=== PATIENT | female | born 1945 | race Caucasian/White ===

== ENCOUNTER 2025-07-13 09:24 | Outpatient (CLI) | payer MEDICARE, MEDICAID, OTHER ==
[~2025-07-13 09:24] MED LIST: ALEN70TA80 PO; ATOR40TA72 PO; CARV25TA PO; CARV25TA2 PO; CINA60TA PO; FURO80TA3 PO; HYDR25TA90 PO; IODIXANOL 320 MG/ML INFUS..BTL 100ML IV ONE; ISOS5TAB3 PO; LACT1CAP26 PO; LOSA100T58 PO; NIFE90TA70 PO; [UNRECOGNIZED DRUG - OTHER]
[2025-07-13 10:06] LABS: MEAN PLATELET VOLUME 6.8 FL (7.4-10.4); RED CELL DISTRIBUTION WIDTH 14.7 % (11.5-14.5)
[2025-07-13 10:15] LABS: APTT 32 SECONDS (22-32); INR 1.2 INR
[2025-07-13 10:23] LABS: CREATININE 4.85 MG/DL (0.40-0.90); TOTAL CARBON DIOXIDE 29.0 MMOL/L (24-32); eGFR 9 ML/MIN
--- NOTE | 2025-07-13 10:49 | RADIOLOGY REPORT ---
EXAM: DI CHEST,TWO VIEWS CLINICAL HISTORY: AV STENOSIS,SOB,CAROTID STENOSIS COMPARISON: CT CT CHEST on DOS: 03/23/25, DI CHEST,SINGLE VIEW on DOS: 03/22/25, XR CHEST 1 VIEW PORTABLE on DOS: 03/22/25 TECHNIQUE: Frontal and lateral view of the chest was obtained FINDINGS: Lines and Tubes: None Lungs: Hyperinflation of the lungs suggestive of chronic obstructive pulmonary disease. Small right and trace left pleural effusion. Cardiomediastinal contours:Cardiomegaly. Atherosclerotic vascular calcifications of the thoracic aorta are noted. Bones: No acute osseous abnormality. IMPRESSION: Cardiomegaly. Hyperinflation of the lungs suggestive of chronic obstructive pulmonary disease. Small right and trace left pleural effusion.
[2025-07-13 10:56] LABS: PRO BRAIN NATRIURETIC PEPTIDE > 30000 PG/ML (0-450)
--- NOTE | 2025-07-13 13:13 | VASCULAR REPORT ---
Carotid Duplex Date: 07/13/2025 10:14 AM Clinical History: pre op tavr Comparison: None Technique: Duplex Doppler evaluation of the extracranial carotid and vertebral arteries including color Doppler and spectral/pulsed waveform analysis was performed. Indications Preop for TAVR. Doppler Spectral Velocity Analysis Right Left pCCA 56/12 cm/s pCCA 68/11 cm/s dCCA 49/9 cm/s dCCA 50/7 cm/s ECA 45/ cm/s ECA 56/ cm/s pICA 35/10 cm/s pICA 39/11 cm/s Sidney 81/21 cm/s Sidney 59/18 cm/s dICA 89/18 cm/s dICA 77/17 cm/s Vert 46/11 cm/s Vert. 40/9 cm/s Subcl. 62/ cm/s Subcl. 152/ cm/s ICA/CCA 1.82 ICA/CCA 1.54 Real-Time B-Mode Imaging Area Findings Right Left CCA Plaque Composition Intimal thickening Intimal thickening BIF Plaque Composition Heterogeneous with calcification Heterogeneous with calcification Plaque Description Irregular Irregular Plaque Area Focal Focal Vertebral Antegrade Antegrade Subclavian Multiphasic Multiphasic CONCLUSION No sonographic evidence of stenosis or occlusion in bilateral carotid arteries. Some heterogenous calcified plaque noted in bilateral bifurcations. Bilateral common carotid arteries showed less than 50 percent stenosis. Bilateral external carotid arteries showed less than 50 percent stenosis. Bilateral internal carotid arteries showed less than 50 percent stenosis. Antegrade flow noted in bilateral vertebral arteries. Multiphasic flow noted in bilateral subclavian arteries.
--- NOTE | 2025-07-15 19:43 | RADIOLOGY REPORT ---
CT CTA TAVR INDICATION: Stenosis TECHNIQUE: Gated CT angiography of the heart was performed along with CT angiography of the lower neck, chest, abdomen, and pelvis. MIP, MPR, and 3-D images were obtained. Measurements were performed on the [employer] workstation. All CT scans at this facility use dose modulation, iterative reconstruction, and/or weight based dosing when appropriate to reduce radiation dose to as low as reasonably achievable. COMPARISON: CT CT CHEST on DOS: 03/23/25 FINDINGS: ANNULAR PLANE DISTANCE: 28 x 21.7 mm AREA: 4.54 cm2 AVERAGE DIAMETER: 18.35 mm PERIMETER: 77.2 mm LEFT CORONARY ARTERY HEIGHT ABOVE ANNULAR PLANE: 15 mm RIGHT CORONARY ARTERY HEIGHT ABOVE ANNULAR PLANE: 10.8 mm LEFT CORONARY SINUS DIAMETER: 32.5 mm RIGHT CORONARY SINUS DIAMETER: 28.3 mm NONCORONARY CORONARY SINUS DIAMETER: 29.1 mm SINOTUBULAR JUNCTION DIAMETER: 26.1 mm RIGHT COMMON ILIAC ARTERY MINIMAL DIMENSIONS: 7.99 mm RIGHT EXTERNAL ILIAC ARTERY MINIMAL DIMENSIONS: 8.63 mm RIGHT COMMON FEMORAL ARTERY MINIMAL DIMENSIONS: 7.23 mm LEFT COMMON ILIAC ARTERY MINIMAL DIMENSIONS: 8.3 mm LEFT EXTERNAL ILIAC ARTERY MINIMAL DIMENSIONS: 7.9 mm LEFT COMMON FEMORAL ARTERY MINIMAL DIMENSIONS: 7.2 mm [LOWER NECK]: Unremarkable [LYMPH NODES/MEDIASTINUM]: Lower paratracheal lymph node prominence measuring 1.4 cm [CARDIOVASCULAR]: [id number]-[id number] cardiomegaly severe dilation of the left atrium which may be seen in the setting of atrial fibrillation short common trunk of the left pulmonary veins question concentric left ventricular hypertrophy No pericardial effusion. Coronary artery calcifications. [LUNG PARENCHYMA/PLEURAL SPACE]: 23 small to medium right-sided pleural effusion. Inconspicuous pulmonary alveolar edema and interstitial edema atelectasis/partial collapse of the medial segment, right middle lobe [CHEST WALL]: Unremarkable. [LIVER]: Areas of enhancement of the periphery of hepatic segment 6 and 7 which may be related to arterial portal shunting with evidence of possible fistula in the right inferior hepatic tip and subsequent dilation of the vessel up to 2.8 cm [SPLEEN]: Unremarkable. [PANCREAS]: Prominence of the main pancreatic duct of the level of the pancreatic body measuring up to 4 mm [GALLBLADDER AND BILIARY TREE]: No cholelithiasis. No biliary dilatation. 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 No nephroureterolithiasis. No hydronephrosis [BLADDER]: Decompressed limiting evaluation [PELVIC ORGANS]: Unremarkable. [BOWEL/MESENTERY]: Slight proximal gastric wall prominence No CT evidence of bowel obstruction. [ASCITES]: Absent [LYMPHADENOPATHY]: No pathologically enlarged lymph nodes by CT size criteria [VASCULATURE]: Vascular calcifications. [ABDOMINAL WALL]: Mild diffuse body wall edema/ anasarca [MUSCULOSKELETAL]: No acute fracture or aggressive focal osseous lesion. Multifocal degenerative change of the visualized spine. Prior healed posterior right-sided rib fractures. Multilevel endplate degenerative change. Mild superior endplate height loss of T9 with 10 percent superior endplate height loss. IMPRESSION: 1. CT TAVR measurements as detailed above. 2. Pulmonary alveolar and interstitial edema. 3. At least moderate cardiomegaly with prominent dilation of the left atrium seen in the setting of atrial fibrillation with short left pulmonary vein common trunk. 4. Suspicious for concentric left ventricular hypertrophy. 5. Coronary artery calcifications. 6. Small to medium right-sided pleural effusion. 7. 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
== END 2025-07-13 23:59 | disposition home or self-care (01) ==
LOC: RAD 09:24
PROVIDERS: ATTEND Internal Medicine Cardiovascular Disease
DX: I65.23 Occlusion and stenosis of bilateral carotid arteries (principal); J90 Pleural effusion, not elsewhere classified; I35.0 Nonrheumatic aortic (valve) stenosis; R06.02 Shortness of breath; J98.11 Atelectasis; I51.7 Cardiomegaly; I70.0 Atherosclerosis of aorta; M47.814 Spondylosis without myelopathy or radiculopathy, thoracic region
CPT/HCPCS: 36415; 71046; 71275; 74174; 75572; 80053; 83880; 85025; 85610; 85730; 93880; Q0163; Q9967

== ENCOUNTER 2025-07-15 08:25 | Outpatient (CLI) | payer MEDICARE, MEDICAID ==
[~2025-07-15] VITALS: Ht 157.5 cm; Wt 39.1 kg
[~2025-07-15 08:25] MED LIST changes: -IODIXANOL 320 MG/ML INFUS..BTL 100ML IV ONE
[2025-07-15 09:10] VITALS: BP 107/53; PULSE 63; RESP 12; TEMP 97.1; O2SAT 100
--- NOTE | 2025-07-15 12:40 | CONSULTATION REPORT ---
History of Present Illness Providers to CC CC: FRANK CUNHA DO ~ Refering MD: Dr. Cunha History of Present Illness A Very pleasant 79yo woman with Hypertension, Hyperlipidemia, End-stage renal disease(on HD T/R/S), Chronic Respiratory Failure(On O2), Severe Symptomatic A ortic Stenosis here to be evaluated in the TAVR clinic. She is accompanied by her [id number]. States she had two hospitalizations for shortness of breath this year. In December, states she was in the hospital for 4-5 days and cannot recall why. Was then again hospitalized February of 2025 for shortness of breath, found to have worsening of her aortic stenosis as well as pneumonia. Since, has steadily declined. Now gets short of breath just making her bead. Has been on oxygen since February hospitalization. Additionally, reports her BP does drop at times with dialysis. She denies any chest pain, syncope, dizziness/lightheadedness, bleeding, LE edema. Allergies: Coded Allergies: iodine (Verified Allergy, Unknown, 09/29/23) Active prescriptions Losartan 200mg QD Coreg 12.5mg BID Imdur BID Lasix 80mg BID Atorva 80mg QDTrazadone Alendronate Auryxia Cinacalcet Home Medications Home Medications Active Culturelle (Lactobacillus Rhamnosus) 10 Billion Cell Capsule 1 Cap PO BID 30 Days Reported Isosorbide Dinitrate 5 Mg Tablet 1 Tab PO Q12H 30 Days Atorvastatin Calcium 40 Mg Tablet 2 Tab PO DAILY Furosemide 80 Mg Tablet 1 Tab PO DAILY Nifedipine ER (Nifedipine) 90 Mg Tablet.er 1 Tab PO DAILY Losartan Potassium 100 Mg Tablet 1 Tab PO DAILY [Anryxia] Sensipar (Cinacalcet) 60 Mg Tablet 2 Tab PO DAILY Alendronate Sodium 70 Mg Tablet 1 Tab PO Q7D Coreg (Carvedilol) 25 Mg Tablet 1 Tab PO BID Apresoline* (Hydralazine HCl) 25 Mg Tablet 1 Tab PO TID Carvedilol 25 Mg Tablet 0.5 Tab PO BID Past Medical History Medical History Comment 1. Severe, Symptomatic Aortic Stenosis 2. Hypertensive heart disease 3. Hyperlipidemia 4. ESRD, on HD T/R/Sat 5. Chronic Respiratory failure Past Surgical History Surgical History Comment Prior LUE AV fistula. Hysterectomy. Otherwise denies any heart/lung surgeries Past Family History Family History: FH: kidney failure MOTHER Past Social History Social History Comment Denies tobacco or alcohol abuse Physical Exam Last Vital Signs Recorded: Temperature: 97.1, Source: Temporal, Heart Rate: 63, Respiratory Rate: 12, BP: 107/53, Pulse Oximetry: 100, Weight: 39.100 General Appearance: alert, no apparent distress, other (++In wheelchair, On O2) Respiratory: lungs clear Cardiovascular: regular rate, rhythm, systolic murmur (IV/ RUSB/LUSB. ) Peripheral Pulses: 2+ radial (R), 2+ radial (L) Gastrointestinal: bowels sounds present Extremities: no edema, other (++ LUE AVF) Neurologic: oriented x4 Psychiatric: normal mood/affect Review of Systems ROS ROS Comments: A 14-point review of systems is positive as above. The rest of the review of systems has been done and found to be unrevealing. Results Results/Orders Results/Orders Hg 11.0 HCt 32.1, Cr 4.85(On HD) Echocardiogram: LVEF 55-60%, PV 4.0 m/s, MG 38 mmHg, VITA 0.6cm2. Coronary Angiogram: No significant obstructive CAD (2022) EKG: Normal Sinus rhythm, QRS 97ms CT TAVR: Some PAD involving the left common iliac artery. Sinuses are large enough, coronaries are high enough. Assessment/Plan Problems/Diagnosis: (1) Aortic stenosis Assessment & Plan: A Very pleasant 79yo woman with Hypertension, Hyperlipidemia, End-stage renal disease(on HD T/R/S), Chronic Respiratory Failure(On O2), Severe Symptomatic Aortic Stenosis here to be evaluated in the TAVR clinic. She is accompanied by her [id number]. She has severe, symptomatic aortic stenosis with NYHA Class III symptoms of dyspnea on exertion, fatigue. Patient appears to be a good candidate for a transfemoral transcatheter aortic valve replacement. She does have chronic respiratory failure, on O2, however, appears to be the last 4-5 months since she had a pneumonia. Prior CT chest did not reveal any malignancy. --Will plan for a 23mm valve via right femoral approach, to be scheduled soon. (stenosis/calcification of the left common iliac artery) Dr. Cunha, We thank you for allowing us the opportunity to help with the patient. They will see you back in the office shortly. DEVAN LANDIN MD Jul 15, 2025 12:40
== END 2025-07-15 23:59 | disposition home or self-care (01) ==
LOC: TAVR 08:25
PROVIDERS: ATTEND Internal Medicine Cardiovascular Disease
DX: I35.0 Nonrheumatic aortic (valve) stenosis (principal); R06.02 Shortness of breath; I65.29 Occlusion and stenosis of unspecified carotid artery
CPT/HCPCS: J1200

== ENCOUNTER 2025-08-11 09:06 | Inpatient (IN) | payer MEDICARE, MEDICAID ==
[2025-08-05] MEDS: albuterol 2.5 MG/3 ML nebule NEB ONE (13:50)
[2025-08-05 13:51] VITALS: PULSE 69; RESP 18; O2SAT 90
[2025-08-05 13:52] VITALS: PULSE 65; RESP 16
[2025-08-05 14:36] LABS: MEAN PLATELET VOLUME 7.1 FL (7.4-10.4); PRE OP HEMATOCRIT 28.3 % (35.0-45.0); PRE OP PLATELET COUNT 160 X10'3 (140-440); PRE OP WHITE BLOOD COUNT 6.0 10'3 (4.8-10.8); RED CELL DISTRIBUTION WIDTH 17.0 % (11.5-14.5)
[2025-08-05 14:43] LABS: PRE OP INR 1.2 INR; PRE OP PARTIAL THROMB. TIME 29.0 SECONDS (22-32); PRE OP PROTIME 12.4 SECONDS (9.0-12.0)
[2025-08-05 14:44] LABS: PRE OP HEMOGLOBIN 9.7 g/dL (12.0-16.0)
--- NOTE | 2025-08-05 14:49 | ELECTROCARDIOGRAPH REPORT ---
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 Mathew Grover Measurements Intervals [place] Rate: 65 P: 0 [place]: 155 QRS: -39 QRSD: 93 T: 78 QT: 469 QTc: 488 Interpretive Statements Sinus rhythm LVH with secondary repolarization abnormality Electronically Signed On 08-08-2025 7:11:[address] Mathew Grover Please click the below link to view image of tracing.
[2025-08-05 14:55] LABS: CREATININE 4.14 MG/DL (0.40-0.90); PRE OP ALT 35 U/L (30-65); PRE OP ANION GAP 11 (8-16); PRE OP AST 22 U/L (10-37); PRE OP BILIRUB, TOTAL 0.4 MG/DL (0.0-1.0); PRE OP GLUCOSE 92 MG/DL (70-104); PRE OP POTASSIUM 4.0 MMOL/L (3.4-5.1); PRE OP SODIUM 141 MMOL/L (135-145); PRO BRAIN NATRIURETIC PEPTIDE 22815 PG/ML (0-450); TOTAL CARBON DIOXIDE 30.6 MMOL/L (24-32); eCRCL 7 ML/MIN; eGFR 10 ML/MIN
--- NOTE | 2025-08-05 16:33 | PROCEDURE NOTE - Respiratory ---
Procedure Note-Respiratory Providers to Copies To 1: TAZ HOLMAN MD Procedure Name: This is a spirometry study dated August 05, 2025. The spirometry study was performed both before and after inhaled bronchodilator. There was also a room air blood gas obtained on this patient on the same date. Spirometry measurements: There is significant reduction in both the forced vital capacity and the FEV1. The FEV1 ratio is significantly elevated. The flow rate measurements are normal. After inhaled bronchodilator was administered, there is significant improvement in the FEV1 and some of the flow rate measurements. Conclusion: This study is abnormal. The predominant abnormality is that of a restrictive ventilatory defect. There is also evidence for mild obstructive ventilatory defect as well. The patient seems to show slight improvement with inhaled bronchodilator. We have no previous studies for comparison. A blood gas was drawn from this patient while the patient was breathing 4 L nasal cannula oxygen. The blood pH is mildly alkalotic at 7.5. The pCO2 is borderline reduced. This represents a mild respiratory alkalosis. The PO2 level is measuring at 77 mmHg which documents a significantly widened AA gradient. LINDA BARNES MD Aug 05, 2025 16:33
[2025-08-08 07:27] LABS: ABG BASE EXCESS 4.8 mmol/L (-2.0-3.0); ABG HCO3 27.8 mmol/L (21.0-28.0); ABG OXYGEN SATURATION 95.3 % (94.0-98.0); ABG PCO2 (T) 35.0 mmHg (32.0-45.0); ABG PH (T) 7.518 (7.350-7.450); ABG PO2 (T) 77.9 mmHg (83.0-108.0); FCOHb 0.3 % (0.5-1.5); FHHb 4.7 % (0.0-5.0); FIO2 36.0 mmHg/%; FLOW 4 L/min; FMetHb 0.3 % (0.0-1.5); FO2Hb 94.7 % (94.0-98.0); MODE NASAL CANNULA; PATIENT TEMPERATURE 37.0; TOTAL HEMOGLOBIN 10.2 G/dl (12.0-16.0)
[2025-08-10] MEDS: DOCUMENT DATE & TIME OF BETA-BLOCKER PO ONE (20:00)
[2025-08-11] VITALS (28 sets, daily range): BP systolic 134–182; BP diastolic 42–123; PULSE 64–77; RESP 9–23; TEMP 97.4–98.1; O2SAT 84–100
[~2025-08-11] VITALS: Ht 157.5 cm; Wt 41.5 kg
[2025-08-11] MEDS: albuterol 2.5 MG/3 ML nebule NEB ONE (05:30)
[2025-08-11] MEDS: ceFAZolin 2gm/dext,iso 50mL 50 ML IV ONE (05:30)
[~2025-08-11 09:06] MED LIST changes: +AURYXIA PO; +CARV-50 PO; -CARV25TA PO; -CARV25TA2 PO; -LACT1CAP26 PO; +TRAZ-251 PO; -[UNRECOGNIZED DRUG - OTHER]
[2025-08-11] MEDS: vancomycin/NS 1 GM ADD-VANTAGE 250 ML IV ONE (10:48)
[2025-08-11] MEDS: normal saline 1000ml 1,000 ML IV SCH ×2 (10:49→17:50)
[2025-08-11] MEDS ORDERED: ondansetron/PF 4mg/2ml inj IV PRN ×2 (10:50→14:25)
[2025-08-11] MEDS ORDERED: morphine 4 MG/ML inj SYRINge IV PRN (10:50)
[2025-08-11] MEDS ORDERED: fentaNYL/PF 50MCG/1 ML 2ML syringe ONE (11:43)
[2025-08-11] MEDS ORDERED: midazolam 1 mg/ML 2ml injection ONE (11:43)
[2025-08-11] MEDS ORDERED: heparin 1,000 UNITS/NS 500ml 1,500 ML ONE (12:09)
[2025-08-11] MEDS ORDERED: non-formulary drug (Alendronate Sodium 1 TAB) PO SCH (12:25)
[2025-08-11] MEDS ORDERED: propofol inj 20 ML IV ONE (12:54)
[2025-08-11] MEDS ORDERED: heparin 1,000unit/ml 10ml vial 10 ML ONE ×2 (12:54→13:00)
[2025-08-11] MEDS ORDERED: desflurane 240ml liquid inh. IH ONE (13:07)
[2025-08-11] MEDS ORDERED: protamine sulfate 10mg/ml inj. ONE (13:07)
[2025-08-11] MEDS ORDERED: potassium Cl 40MEQ/1/2NS 520ml 520 ML IV PRN (14:25)
[2025-08-11] MEDS ORDERED: magnesium sulf-water 2g/50mL 50 ML IV PRN (14:25)
[2025-08-11] MEDS ORDERED: docusate sod 100mg capsule PO PRN (14:25)
[2025-08-11] MEDS ORDERED: potassium Cl 20mEq/100mL bag 100 ML IV PRN (14:25)
[2025-08-11] MEDS ORDERED: pantoprazole 40mg Tablet.DR PO PRN (14:25)
[2025-08-11] MEDS ORDERED: potassium CL 10mEq/100ml bag 100 ML IV PRN (14:25)
[2025-08-11] MEDS ORDERED: potassium Cl 20 mEq SR tablet PO PRN (14:25)
[2025-08-11] MEDS ORDERED: potassium Cl 40MEQ/270ML bag 250 ML IV PRN (14:25)
[2025-08-11] MEDS ORDERED: magnesium sulf-water 4G/100mL 100 ML IV PRN (14:25)
--- NOTE | 2025-08-11 14:35 | OPERATIVE REPORT ---
Operative Report Providers to CC CC: Oswaldo Bruno MD ~ Date of Procedure: Aug 11, 2025 Pre-Operative Diagnosis: Severe Aortic Stenosis Post-Operative Diagnosis SAME as PRE-Op Procedure Performed 1. Ultrasound-guided access, bilateral femoral vessels. 2. Bilateral femoral angiography. 3. Ascending aortography 4. Temporary transvenous pacer to the RV apex. 5. Placement of a 23 +1 mm Rider S3 Resilia valve. Surgeon: Devan Grover MD Dry Ice Machine Operator MD Dr. Nir Steen MD Anesthesiologist: Sean Gamble Type of Anesthesia: General Findings: Severe Aortic Stenosis Complications None Prosthetics\Implants used: Rider 23+1mm S3 Resilia Estimated Blood Loss: Minimal Specimen Removed: None Description of Procedure: The patient was brought to the cathead worker in a fasting state. They underwent general anesthesia. Ultrasound was used to guide access to the bilateral femoral vessels, 7-Guinean sheath, left femoral artery, 6-Guinean sheath, right femoral artery and left femoral vein. Bilateral femoral angiograms were obtained. Heparin was given to maintain an ACT over 250 seconds. Two crisscross Percloses were placed on the right. We upsized to an 8-Guinean sheath. Two pigtail catheters placed in the ascending aorta. Ascending aortography done to determine the angle of deployment. Temporary transvenous pacer to the RV apex and confirmed capture. We upsized an 8-Guinean sheath to a 14-Guinean Rider eSheath on the right. We crossed the aortic valve using a straight stiff exchange length Terumo wire supported by a 6-Guinean AL1 catheter. LV AO pressures were recorded. A [employer] extra support wire was placed in the left ventricle. A 23mm Rider S3 Resilia valve was brought to position and under rapid right ventricular pacing was deployed. Post-procedure, there was 2+ AI and no residual . Given such, the valve balloon was re-prepped at +1 and the valve post-dilated. Repeat evaluated revealed 1+ AI and no signficant . Guidewires and balloons were removed at this time. The temporary pacer was removed. The 14-Guinean Rider eSheath was removed and two crisscross Percloses tied with adequate hemostasis. The arterial sheath on the left was removed and a single Perclose tied. The venous sheath on the left was removed and a single Perclose used for hemos tasis. Protamine was given to reverse the effects of heparin. The patient was stable post-procedure. Good pulses in the legs and no evidence of bleeding, transferred to the PACU in stable condition. HEMODYNAMICS: Pre: LV: 162/8 mmHg LVEDP: 19mmHg Ao: 132/53, MAP 81mmHg Post: LV: 150/13 mmHg LVEDP: 25 mmHg Ao: 147/49, MAP 86mmHg RESULTS: 1. Successful placement of a 23(+1) mm Rider S3 Resilia valve, right transfemoral approach, two perclose devices. ASA 81mg QD 2. Acute on chronic diastolic heart failure, LVEDP 19mmHg 3. Hypertension: Resume if blood pressure remains stable 4. ESRD, on HD T/R/Sat Patient will be watched in the recovery area until stable, then transferred to telemetry at that time. DEVAN GROVER MD Aug 11, 2025 14:35
[2025-08-11] MEDS ORDERED: LIDOcaine 1% W/epiNEPHrine 1:100,000 20ml vial ONE (14:42)
--- NOTE | 2025-08-11 15:02 | ELECTROCARDIOGRAPH REPORT ---
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 Dylan España Measurements Intervals [place] Rate: 63 P: 71 [place]: 154 QRS: -54 QRSD: 158 T: 114 QT: 551 QTc: 565 Interpretive Statements Sinus rhythm Ventricular premature complex Left bundle branch block Electronically Signed On 08-12-2025 8:52:[address] Dylan España Please click the below link to view image of tracing.
[2025-08-11] MEDS: phenylephrine inj 50 MG in normal saline 250ml IV solN IV SCH (15:15)
[2025-08-11] MEDS: ringers solution, lacted 1,000 ML IV SCH (15:15)
[2025-08-11] MEDS: nitroPRUSSIDE (NIPRIDE) (200MCG/ML) 100ML Drip IV SCH (15:15)
[2025-08-11] MEDS: sod chloride 0.9% 10ml flush syringe IV SCH (16:00)
[2025-08-11] MEDS: labetalol 20mg/4ml (5mg/ml) syringe IV PRN (16:00)
[2025-08-11] MEDS: ceFAZolin 1GM/D5W- ADD-VANTAGE 50 ML IV SCH (16:00)
[2025-08-11] MEDS: hydrALAZINE 20mg/ml inj. IV PRN (16:43)
--- NOTE | 2025-08-11 16:52 | CARDIOLOGY REPORT ---
APPROVED REPORT EXAM: Focused, limited intraprocedural transthoracic 2D, spectral and color flow Doppler echocardiogram during TAVR deployment. 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 / Surgeon: Erica CHAND MD / Device rep: Parker Hagan ELS Previous echo: 03/22/25 [facility] RL EF: 55-60%; VITA 0.85; PKV: 4.49; GRAD: 80 / 42; LVOT: 2.02; VHD: TR MR; modMR-MJ; modTR; RVSP 96mmHG LEFT VENTRICLE Normal LV size and function. Mild concentric hypertrophy. LVEF is 70%. RIGHT VENTRICLE RV is mildly increased in size with good function. RVSP 60mmHG. (HD YESTERDAY) ATRIA Left atrium is moderately dilated. Right atrium is severely dilated. AORTIC VALVE ? Trileaflet AV appears heavily calcified with significant stenosis demonstrated by reduced excursion and increased transvalvular and ascending aorta turbulance. VITA: 0.7 cmsq; Pkv: 4.47 m/sec; Gradients: 90 /51 mmHG. Trace insufficiency. POST DEPLOYMENT (LOOP: 45): 23 mm Rider Dino 3 Ultra Resilia bioprosthetic TAVR appears well seated with normal function. Multiple small PVL's, secondary dilitation performed. Multiple trace paravalvular leaks present at 12, 1, 5, 6 and 7 o'clock in TTE SAX BASE. VITA is measured at 2.58 cmsq. Peak / mean gradients of 20/9 mmHG. Peak velocity is measured at 2.22 m/sec. MITRAL VALVE Moderate MV annular calcification without stenosis. ?Moderate, multijet regurgitation. (HD YESTERDAY) TRICUSPID VALVE TV appears structurally normal with mild regurgitation. (HD YESTERDAY) PERICARDIUM Normal pericardium. No effusion.
[2025-08-11] MEDS: NIFEdipine XL 30mg tablet PO SCH (17:27)
[2025-08-11] MEDS: NIFEdipine XL 30mg tablet PO STA (17:44)
[2025-08-11] MEDS: morphine 4 MG/ML inj SYRINge IV PRN (17:48)
[2025-08-11] MEDS: cinacalcet 30mg tablet PO SCH (20:30)
[2025-08-11] MEDS: vancomycin/NS 1 GM ADD-VANTAGE 250 ML IV SCH (22:05)
[2025-08-11] MEDS: isosorbide dinitrate 5mg tablet PO SCH (22:05)
[2025-08-12] VITALS (28 sets, daily range): BP systolic 95–185; BP diastolic 50–106; PULSE 64–78; RESP 18–30; TEMP 97–98; O2SAT 80–99
[2025-08-12] MEDS: ALPRAZolam 0.25mg tablet PO PRN (01:18)
--- NOTE | 2025-08-12 06:30 | ELECTROCARDIOGRAPH REPORT ---
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 AMADOU Carranza Measurements Intervals [place] Rate: 73 P: 36 [place]: 156 QRS: -56 QRSD: 149 T: 102 QT: 482 QTc: 532 Interpretive Statements Sinus rhythm Left bundle branch block Electronically Signed On 08-12-2025 18:04:[address] AMADOU Carranza Please click the below link to view image of tracing.
[2025-08-12 06:59] LABS: MEAN PLATELET VOLUME 7.1 FL (7.4-10.4); RED CELL DISTRIBUTION WIDTH 18.2 % (11.5-14.5)
--- NOTE | 2025-08-12 07:03 | RADIOLOGY REPORT ---
CHEST RADIOGRAPH Indication: s/p TAVR Technique: Single frontal view of the chest was obtained Comparison: DI CHEST,TWO VIEWS on DOS: 07/13/25 FINDINGS: Lines and Tubes: None Lungs: Diffuse bilateral airspace opacities. Pleura: Small right and large left pleural effusion. No pneumothorax. Cardiomediastinal contours: Cardiomegaly noted. TAVR noted. Bones: No acute osseous abnormality. IMPRESSION: 1. Cardiomegaly with CHF. 2. Small right and large left pleural effusion.
[2025-08-12 07:35] LABS: CREATININE 4.96 MG/DL (0.40-0.90); PRO BRAIN NATRIURETIC PEPTIDE 27639 PG/ML (0-450); TOTAL CARBON DIOXIDE 29.4 MMOL/L (24-32); eCRCL 6 ML/MIN; eGFR 8 ML/MIN
[2025-08-12] MEDS: heparin 1,000 units/ml 10ml inj HE ONE ×2 (08:45→08:46)
[2025-08-12] MEDS: EPOETIN ALFA-EPBX 20,000 UNIT/ML 1 ML MDV IV ONE (09:12)
[2025-08-12] MEDS: albumin (human) 25% 100ml IV 100 ML IV PRN (10:15)
[2025-08-12] MEDS: HYDROcodone/acetaminophen 5mg/325mg tablet PO PRN (11:43)
[2025-08-12] MEDS ORDERED: ASPI81TA53 PO (13:39)
--- NOTE | 2025-08-12 13:59 | RADIOLOGY REPORT ---
EXAM: DI CHEST,SINGLE VIEW Indication: follow up with the pleural effusion s/p dialysis Technique: Single frontal view of the chest was obtained Comparison: DI CHEST,SINGLE VIEW on DOS: 08/12/25, DI CHEST,TWO VIEWS on DOS: 07/13/25, CT CT CHEST on DOS: 03/23/25, DI CHEST,SINGLE VIEW on DOS: 03/22/25, XR CHEST 1 VIEW PORTABLE on DOS: 03/22/25 FINDINGS: Lines and Tubes: None Lungs: Multifocal airspace opacities. Moderate left and small right pleural effusion. No pneumothorax. Cardiomediastinal contours: Cardiomegaly. Bones: No acute osseous cardiomegaly.. IMPRESSION: Multifocal airspace opacities. Moderate left and small right pleural effusion.
--- NOTE | 2025-08-12 14:50 | DISCHARGE SUMMARY ---
Discharge Summary Providers to CC ~ Discharge Summary Admission Diagnosis: Severe Aortic Stenosis Hospital Course DATE OF ADMISSION: 08/11/25 DATE OF DISCHARGE: 08/12/25 Discharge Diagnosis\Comment: Severe aortic stenosis status post TAVR Operations\Procedures: 1. Ultrasound-guided access, bilateral femoral vessels. 2. Bilateral femoral angiography. 3. Ascending aortography 4. Temporary transvenous pacer to the RV apex. 5. Placement of a 23 +1 mm Rider S3 Resilia valve. Consultants: No consultants Complications: No complications Condition on DC: Stable New Medications: Aspirin (Children's Aspirin) 81 Mg Tab.chew 81 MG PO Q24H@0830 for 30 Days, #30 TAB.CHEW Continued Medications: Alendronate Sodium (Alendronate Sodium) 70 Mg Tablet 1 TAB PO Q7D Atorvastatin Calcium (Atorvastatin Calcium) 40 Mg Tablet 2 TAB PO DAILY Carvedilol (Carvedilol) 12.5 Mg Tablet 1 TAB PO Q12H Cinacalcet HCl (Sensipar) 60 Mg Tablet 2 TAB PO HS, TAB Furosemide (Furosemide) 80 Mg Tablet 1 TAB PO BID Hydralazine Hcl* (Apresoline*) 25 Mg Tablet 1 TAB PO DAILY PRN for high blood pressure ONLY IF NEEDED Isosorbide Dinitrate (Isosorbide Dinitrate) 5 Mg Tablet 1 TAB PO Q12H for 30 Days, #60 TAB 0 Refills Losartan Potassium (Losartan Potassium) 100 Mg Tablet 2 TAB PO DAILY Nifedipine (Nifedipine ER) 90 Mg Tablet.er 2 TAB PO HS Trazodone HCl (Trazodone HCl) 50 Mg Tablet 1 TAB PO HS PRN for sleep Discharge Summary: Patient with severe aortic stenosis presented for planned TAVR. Underwent placement of a 23 (+1) mm Rider S3 resilient valve via the right transfemoral approach. She was monitored overnight in the telemetry unit. Has remained hemodynamically stable. She had some increased shortness for breath. She did receive a additional dialysis. She usually has dialysis Friday and was additionally dialysis yesterday. 3.7 L taken off today. She reports feeling better. Shortness for breath is at baseline. She was initially up to 10 L nasal cannula now back down to her home 4-5 L via nasal cannula. Has plans to have dialysis again tomorrow. Has been up and ambulatory to the [facility] and feels well overall. No chest pain or pressure. Shortness for breath at baseline. No dizziness, lightheadedness or syncope. Postoperative testing was reviewed by Dr. Hiram Grover and Dr. Jordan Field. She does have a moderate left pleural effusion. NT proBNP elevated. Postoperative testing prior to discharge: General: Awake, alert, oriented. No apparent distress Respiratory: Lungs are clear and diminished to auscultation bilaterally. No respiratory distress. Chest: Normal shape and size. No accessory muscle use. Cardiovascular: Regular rate and rhythm. S1-S2. No murmur, gallop, rub. Gastrointestinal: Abdomen is soft. Nontender to palpation. Bowel sounds present. Extremities: No lower extremity edema, cyanosis or clubbing. Bilateral femoral cath sites with dressings clean dry and intact. No ecchymosis or swelling. No hematoma. Neurologic: Alert and oriented x4. Nonfocal Psychiatric: Normal mood and affect. Skin: Normal color. Warm and dry. Laboratory Tests Test 08/11/25 19:58 08/12/25 06:24 White Blood Count 10.8 X10'3 (4.5-11.0) Red Blood Count 2.92 X10'6 (4.20-5.60) Hemoglobin 9.9 g/dl (12.0-16.0) Hematocrit 28.5 % (35.0-45.0) Mean Corpuscular Volume 97.6 FL (78-98) Mean Corpuscular Hemoglobin 34.0 PG (27.0-31.0) Mean Corpuscular Hemoglobin Concent 34.8 g/dL (33.0-36.5) Red Cell Distribution Width 18.2 % (11.5-14.5) Platelet Count 159 X10'3 (140-440) Mean Platelet Volume 7.1 FL (7.4-10.4) Neutrophils (%) (Auto) 86.2 % (42-75) Lymphocytes (%) (Auto) 6.8 % (21-51) Monocytes (%) (Auto) 5.2 % (2-12) Eosinophils (%) (Auto) 1.6 % (0-6) Basophils (%) (Auto) 0.2 % (0-1) Neutrophils # (Auto) 9.3 X10'3 (1.8-7.7) Lymphocytes # (Auto) 0.7 X10'3 (1.1-4.8) Monocytes # (Auto) 0.6 X10'3 (0-0.9) Eosinophils # (Auto) 0.2 X10'3 (0-0.9) Basophils # (Auto) 0.0 X10'3 (0-0.2) CBC Comment Sodium Level 137 MMOL/L (135-145) Potassium Level 5.0 MMOL/L (3.5-5.1) Chloride Level 98 MMOL/L (99-107) Carbon Dioxide Level 29.4 MMOL/L (24-32) Anion Gap 10 (8-16) Blood Urea Nitrogen 50 MG/DL (7-18) Creatinine 4.96 MG/DL (0.40-0.90) Estimated GFR/1.73 m2 8 ML/MIN BUN/Creatinine Ratio 10.1 (10.0-20.0) Glucose Level 96 MG/DL (70-104) Calcium Level 8.9 MG/DL (8.5-10.1) Magnesium Level 2.3 MG/DL (1.5-2.4) Total Bilirubin 0.5 MG/DL (0.1-1.0) Aspartate Amino Transf (AST/SGOT) 24 U/L (10-37) Alanine Aminotransferase (ALT/SGPT) 14 U/L (12-78) Alkaline Phosphatase 90 IU/L (46-116) Pro-B-Type Natriuretic Peptide 25137 PG/ML (0-450) Total Protein 6.4 G/DL (6.4-8.2) Albumin 3.2 G/DL (3.4-5.0) Globulin 3.2 G/DL (2.7-4.3) Albumin/Globulin Ratio 1.0 (1.1-1.5) Chemistry Comments Case discussed with Dr. Hiram Grover who is in agreement with discharge home. *Problems/Diagnosis: (1) Pleural effusion (2) Acute on chronic diastolic heart failure (3) Hypertension (4) Aortic stenosis (5) End stage renal disease on dialysis Status: Acute Total Time Spent on D/C: > 30 Minutes Counseling Services Smoking & Tobacco Cessation: N/A JOSE ROBERTO GRAFF NP Aug 12, 2025 14:49
--- NOTE | 2025-08-12 15:25 | PROGRESS NOTE ---
Progress Note Cardiology Providers to CC ~ Subjective Subjective Patient unable to discharge today given hypoxia. She is 79% on her home 5 L. x- ray does show moderate pleural effusion on the left. Objective Result Diagram: 08/12/2562308/12/25623 Objective General: Awake, alert, oriented. No apparent distress Respiratory: Lungs are clear and diminished to auscultation bilaterally. No respiratory distress. Chest: Normal shape and size. No accessory muscle use. Cardiovascular: Regular rate and rhythm. S1-S2. No murmur, gallop, rub. Gastrointestinal: Abdomen is soft. Nontender to palpation. Bowel sounds present. Extremities: No lower extremity edema, cyanosis or clubbing. Bilateral femoral cath sites with dressings clean dry and intact. No ecchymosis or swelling. No hematoma. Neurologic: Alert and oriented x4. Nonfocal Psychiatric: Normal mood and affect. Skin: Normal color. Warm and dry. Coagulation Studies Laboratory Tests Test 08/05/25 14:05 08/11/25 13:29 Prothrombin Time 12.4 SECONDS (9.0-12.0) H INR International Normalized Ratio 1.2 INR Activated Partial Thromboplast Time 29 SECONDS (22-32) Activated Clotting Time 216 SEC (101-148) H Problem\Assessment\Plan Problems/Diagnosis: (1) Pleural effusion (2) Acute on chronic diastolic heart failure (3) Hypertension (4) Aortic stenosis (5) End stage renal disease on dialysis Additional Plan Patient presented for planned TAVR. The following is her problem list: Severe aortic stenosis Status post TAVR Postoperative testing reveals TAVR valve is well seated. Acute on chronic respiratory failure Moderate left pleural effusion Requiring more oxygen Plan for dialysis again tomorrow. Possible thoracentesis tomorrow. End-stage renal disease on dialysis --we will plan for dialysis again tomorrow Acute on chronic diastolic heart failure Hypertension Case discussed with Dr. Hiram Grover who is in agreement with this plan. Supervising Physician: JOSE ROBERTO Grimes NP Aug 12, 2025 15:25
[2025-08-12] MEDS: hydrALAZINE 20mg/ml inj. IV PRN (16:42)
--- NOTE | 2025-08-12 16:58 | CONSULTATION REPORT - RESIDENT ---
Consult Providers to CC Resident Creating Document: DEEPA RIVERA RES History of Present Illness Reason for Admit\Complaint: Fluid overload History of Present Illness This is an 79-year-old female with a history of aortic stenosis, hypertension, CHF, ESRD on dialysis(TTS), chronic hypoxemic respiratory failure, on 4-5 L of oxygen at home, had a planned TAVR done by Dr. Grover. She received dialysis on Friday and Friday before the TAVR. Throughout the night and today in the morning she developed increase in the shortness of breadth, was on 15 L high- flow oxygen. Her chest x-ray showed bilateral congestion with bilateral pleural effusion. She received dialysis today, about 3700 mL of fluid was taken out, post dialysis the patient has felt much better, her oxygen requirement decreased to 5 L with nasal cannula. Allergies: Coded Allergies: iodine (Verified Allergy, Unknown, 09/29/23) Home Medications Home Medications Active Children's Aspirin (Aspirin) 81 Mg Tab.chew 81 Mg PO Q24H@0830 30 Days Reported Carvedilol 12.5 Mg Tablet 1 Tab PO Q12H Trazodone HCl 50 Mg Tablet 1 Tab PO HS PRN Isosorbide Dinitrate 5 Mg Tablet 1 Tab PO Q12H 30 Days Atorvastatin Calcium 40 Mg Tablet 2 Tab PO DAILY Furosemide 80 Mg Tablet 1 Tab PO BID Nifedipine ER (Nifedipine) 90 Mg Tablet.er 2 Tab PO HS Losartan Potassium 100 Mg Tablet 2 Tab PO DAILY Sensipar (Cinacalcet) 60 Mg Tablet 2 Tab PO HS Alendronate Sodium 70 Mg Tablet 1 Tab PO Q7D Apresoline* (Hydralazine HCl) 25 Mg Tablet 1 Tab PO DAILY PRN ONLY IF NEEDED Past Medical History Past Medical History ESRD on dialysis Cardiovascular disease HTN Hyperlipidemia Past Surgical History Surgical History Comment Cataract extraction Cardiac catheterization in 2020 Hysterectomy Left wrist ORIF Family History Family History: FH: kidney failure MOTHER Past Social History Social History Comment Denies Smoking, alcohol, illicit use of drugs Exam Vitals: Vital Signs Date Time Temp Pulse Resp B/P (MAP) Pulse Ox O2 Delivery O2 Flow Rate FiO2 08/12/25 16:43 19 08/12/25 16:42 75 08/12/25 15:13 92 High Flow Nasal Cannula 8.0 08/12/25 11:20 98.0 128/57 (80) 08/12/25 02:40 44 General: General: In respiratory pparent distress HEENT: Atraumatic, normocephalic, EOMI, anicteric sclera ; pink conjunctiva Neck: Trachea midline. Supple, full range of motion, no JVD Cardiac: Regular rhythm, regular rate with no murmurs all over the precordium. Respiratory: Decreased breath sounds bilaterally, bilateral crackles heard Gastrointestinal: Abdomen symmetric, non-distended, soft, non-tender, normal bowel sounds x4 quadrant, Musculoskeletal: Bilateral 2+ pitting edema up to knees. Neurological: No focal neurological deficits. Skin: Warm and dry Diagnostic Data Last Recorded Lab Results: 08/12/25 0624 08/12/25 0624 Diagnostic Data: Laboratory Tests Test 08/05/25 14:05 08/11/25 13:29 Prothrombin Time 12.4 SECONDS (9.0-12.0) H INR International Normalized Ratio 1.2 INR Activated Partial Thromboplast Time 29 SECONDS (22-32) Activated Clotting Time 216 SEC (101-148) H Additional Plan Assessment This is an 79-year-old female with a history of CKD stage 5, severe aortic stenosis, chronic hypoxemic respiratory failure on 4-5 L of oxygen had a TAVR done yesterday, she developed sudden increasing shortness of breadth with pulmonary congestion and bilateral pleural effusion. She had dialysis today, about 3700 mL of fluid was taken out. Post dialysis patient feels much better. Plan ESRD on dialysis, Acute fluid overload, pleural effusion The fluid overload could be due to sudden change in the hemodynamics of the patient after TAVR. Chest x-ray showed small right and large left pleural effusions. Her regular dialysis schedule is Friday, , Friday Dialysis port-AV fistula in the left forearm. Dialysis was done, removed about 3700 mL Potassium was about 5.0, 2K bath Hemoglobin 9.9, 40853 units of Retacrit given Plan Patient continues to show fluid overload We will probably need one more round of dialysis tomorrow. Possible thoracocentesis tomorrow History of hyperparathyroidism Continued patient's home medications ionized calcium 60 mg Acute CHF exacerbation Aortic stenosis s/p TAVR Currently on 8 L of oxygen with nasal cannula. ProBNP 2 769 Echocardiogram post TAVR shows ejection fraction of 65-70%, moderately dilated left atrium Continue aspirin, atorvastatin On Lasix 80 b.i.d.. Hypertension Patient's home medication include losartan to 100 mg, nifedipine 90 mg, isosorbide dinitrate 5 mg q.12, carvedilol, hydralazine 25 mg Patient's current blood pressure is on the lower end. Deepa Rivera M.D PGY2 Nephrology Resident. Nephrology attending: the patient is quite short of breath just finished her dialysis and we got out 2.7 liters prioritizing her for dialysis first. She feels somewhat better. still on 8 L NC. will dialyzer her tomorrow again. discussed cardiology VOLUNTEER SERVICES SPECIALIST. care plan reviewed with resident. appreciate the above. Cedric Mcneal MD Sepsis Screening Skin Color: Normal Date of Service: Aug 12, 2025 Billing Provider: CEDRIC MCNEAL MD, PRAVAHIKA, RES Aug 12, 2025 16:58 CEDRIC MCNEAL MD Aug 12, 2025 20:36
--- NOTE | 2025-08-12 17:05 | CONSULTATION REPORT - RESIDENT ---
Consult Providers to CC Resident Creating Document: MO JERONIMO ODILIA HASSAN History of Present Illness Reason for Admit\Complaint: Acute hypoxemic respiratory failure, congestive heart failure History of Present Illness The senior mechanical engineer team was consulted for possible thoracentesis. This is 79 years old female with past medical history of end-stage renal disease on dialysis, coronary artery disease, hypertension, hyperlipidemia, chronic hypoxemic respiratory failure on 4-5 L oxygen at home. The patient underwent an elective TAVR procedure yesterday by Dr. Grover. The patient developed significant worsening shortness of breaths since yesterday that has been progressively worsening and the patient required almost 15 L high-flow oxygen to maintain stable oxygen saturations. She was noted to have bilateral pleural effusions and hence the cardiology team consulted for possible bilateral thoracentesis. The patient currently stated that her shortness of breath has improved a little after dialysis but continues to have shortness of breaths and is on 8 L oxygen. Denied any chest pain, palpitations, nausea, vomiting or any other new concerns or complaints at the moment. Allergies: Coded Allergies: iodine (Verified Allergy, Unknown, 09/29/23) Home Medications Home Medications Active Children's Aspirin (Aspirin) 81 Mg Tab.chew 81 Mg PO Q24H@0830 30 Days Reported Carvedilol 12.5 Mg Tablet 1 Tab PO Q12H Trazodone HCl 50 Mg Tablet 1 Tab PO HS PRN Isosorbide Dinitrate 5 Mg Tablet 1 Tab PO Q12H 30 Days Atorvastatin Calcium 40 Mg Tablet 2 Tab PO DAILY Furosemide 80 Mg Tablet 1 Tab PO BID Nifedipine ER (Nifedipine) 90 Mg Tablet.er 2 Tab PO HS Losartan Potassium 100 Mg Tablet 2 Tab PO DAILY Sensipar (Cinacalcet) 60 Mg Tablet 2 Tab PO HS Alendronate Sodium 70 Mg Tablet 1 Tab PO Q7D Apresoline* (Hydralazine HCl) 25 Mg Tablet 1 Tab PO DAILY PRN ONLY IF NEEDED Past Medical History Past Medical History ESRD on dialysis Cardiovascular disease HTN Hyperlipidemia Past Surgical History Surgical History Comment Cataract extraction Cardiac catheterization in 2020 Hysterectomy Left wrist ORIF Family History Family History: FH: kidney failure MOTHER Past Social History Social History Comment Lives at home. Denies smoking, alcohol or illicit drug use. ROS ROS As stated above in the HPI, otherwise all systems are reviewed and negative. Exam Vitals: Vital Signs Date Time Temp Pulse Resp B/P (MAP) Pulse Ox O2 Delivery O2 Flow Rate FiO2 08/12/25 16:43 19 08/12/25 16:42 75 08/12/25 15:13 92 High Flow Nasal Cannula 8.0 08/12/25 11:20 98.0 128/57 (80) 08/12/25 02:40 44 General: General: On 8 L oxygen via nasal cannula. Moderate distress. HEENT: Atraumatic, normocephalic, EOMI, anicteric sclera ; pink conjunctiva Neck: Trachea midline. Supple, full range of motion, no JVD Cardiac: Regular rhythm, regular rate with no murmurs all over the precordium. Respiratory: Bibasilar crackles present. Gastrointestinal: Abdomen symmetric, non-distended, soft, non-tender, normal bowel sounds x4 quadrant, Musculoskeletal: 1+ pitting edema in bilateral lower extremity. Neurological: No focal neurological deficits. Skin: Warm and dry Diagnostic Data Last Recorded Lab Results: 08/12/25 0624 08/12/25 0624 Diagnostic Data: Laboratory Tests Test 08/05/25 14:05 08/11/25 13:29 Prothrombin Time 12.4 SECONDS (9.0-12.0) H INR International Normalized Ratio 1.2 INR Activated Partial Thromboplast Time 29 SECONDS (22-32) Activated Clotting Time 216 SEC (101-148) H Additional Plan Acute hypoxemic respiratory failure Acute congestive heart failure with preserved ejection fraction Status post TAVR POD day 1 Severe volume overload End-stage renal disease on dialysis Chest x-ray showed multifocal airspace opacities with moderate left-sided and small right-sided pleural effusion. Ultrasound machine was taken to the bedside to evaluate the patient's pleural effusion. The patient did not have significant amount of pleural effusion to be drained. And also due to her thin body habitus it was deemed to be very risky to do a thoracentesis on the patient. We recommend the patient to get dialysis aggressively for fluid removal. Continue management as per the Cardiology team. Thank you for allowing us to participate in the patient's care. CODE STATUS: Full code Mo Jeronimo MD Internal Medicine Resident, PGY-3 Sepsis Screening Skin Color: Normal Date of Service: Aug 12, 2025 Billing Provider: AUNDREA SCHMIDT MD,MO HASSAN RES Aug 12, 2025 17:05
--- NOTE | 2025-08-12 19:38 | CARDIOLOGY REPORT ---
APPROVED REPORT EXAM: Limited 2D, Doppler, and color-flow Echocardiogram. Patient Location: [facility] Blood Pressure: 162/65 mmHg Heart Rate: 149 bpm Indications ONE DAY FOLLOW-UP TAVR 23 mm Rider Dino 3 Ultra RESILIA Bioprosthetic TAVR Turner Machine Operator: Erik Grover MD Previous echo 08/11/25 [facility] EF: 70; VITA: 2.58: GRAD: / ; PKV: 2.22 2D Dimensions LA Diam 4.4 cm IVSd 1.3 (0.7-1.1cm) LVDd 4.5 cm PWd 1.1 (0.7-1.1cm) IVSs 1.8 (0.8-1.2cm) LVDs 2.9 (2.5-4.0cm) PWs 1.6 (0.8-1.2cm) LVOT Diameter 2.30 (1.8-2.4cm) LVEF(%) 66.2 (>50%) Ao Asc Diam. 3.50 cm IVC 18.48 mm FS (%) 36.4 % SV 62.3 ml CO 9.2 L/min M-Mode Dimensions Left Atrium(MM) 4.87 (2.5-4.0cm) Aortic Root 2.42 (2.2-3.7cm) Aortic Valve AoV Peak Luis. 262.8 cm/s AoV VTI 50.4 cm AO Peak GR. 27.6 mmHg AO Mean GR. 13 mmHg LVOT VTI 31.36 cm LVOT Peak Luis. 139.1 cm/s VITA(VTI)/BSA 2.59 cm2/m2 VITA (VTI) 2.59 cm2 AI P 1/2 Time 428 ms AV DI 0.57 % Tricuspid Valve TR P. Velocity 449 cm/s RAP ESTIMATE 10 mmHg TR Peak Gr. 81 mmHg RVSP 91 mmHg LEFT VENTRICLE Normal LV size with mild proximal septal thickening. Overall systolic function is normal. LVEF is 65-70%. RIGHT VENTRICLE Right ventricle appears mildly dilated with adequate function. Elevated right heart pressures with an RVSP of 91 mmHg. ATRIA Left atrium is moderately dilated. AORTIC VALVE 23 mm Rider Dino 3 Ultra Resilia bioprosthetic TAVR appears well seated with normal function. Trace paravalvular leak present at 5, 6, 7, and 12 o'clock in TTE SAX BASE. VITA is measured at 2.59 cmsq. Peak / mean gradients of 28 / 13 mmHG. Peak velocity is measured at 2.62 m/sec. MITRAL VALVE Moderate mitral annular calcification without stenosis. Mild to moderate regurgitation. TRICUSPID VALVE The tricuspid valve is normal in structure with moderate regurgitation. PULMONIC VALVE The pulmonary valve is normal in structure with physiologic insufficiency. GREAT VESSELS The aortic root is normal in size. The ascending aorta is normal in size. The IVC is normal in size and collapses >50% with inspiration. PERICARDIUM Normal pericardium. No effusion. Pleural effusion present. Other Information Study Quality: Fair Conclusion Normal LV size with mild proximal septal thickening. Overall systolic function is normal. LVEF is 65-70%. Right ventricle appears mildly dilated with adequate function. Elevated right heart pressures with an RVSP of 91 mmHg. Left atrium is moderately dilated. 23 mm Rider Dino 3 Ultra Resilia bioprosthetic TAVR appears well seated with normal function. Trace paravalvular leak present at 5, 6, 7, and 12 o'clock in TTE SAX BASE. VITA is measured at 2.59 cmsq. Peak / mean gradients of 28 / 13 mmHG. Peak velocity is measured at 2.62 m/sec. Moderate mitral annular calcification without stenosis. Mild to moderate regurgitation. The tricuspid valve is normal in structure with moderate regurgitation. Normal pericardium. No effusion.
[2025-08-12] MEDS: labetalol 20mg/4ml (5mg/ml) syringe IV PRN (23:28)
[2025-08-13] VITALS (22 sets, daily range): BP systolic 114–160; BP diastolic 34–78; PULSE 56–85; RESP 14–24; TEMP 96.9–98; O2SAT 80–100
[2025-08-13] MEDS ORDERED: albumin (human) 25% 100ml IV 100 ML IV PRN (08:30)
[2025-08-13 09:42] LABS: MEAN PLATELET VOLUME 6.9 FL (7.4-10.4); RED CELL DISTRIBUTION WIDTH 17.5 % (11.5-14.5)
[2025-08-13] MEDS: heparin 1,000unit/ml 10ml vial 10 ML IV ONE (09:49)
[2025-08-13] MEDS: EPOETIN ALFA-EPBX 20,000 UNIT/ML 1 ML MDV IV ONE (09:50)
[2025-08-13] MEDS: heparin 1,000 units/ml 10ml inj IV ONE (09:50)
[2025-08-13] MEDS: heparin 1,000 units/ml 10ml inj HE ONE ×2 (09:51)
[2025-08-13 09:59] LABS: CREATININE 4.30 MG/DL (0.40-0.90); TOTAL CARBON DIOXIDE 26.8 MMOL/L (24-32); eCRCL 7 ML/MIN; eGFR 10 ML/MIN
[2025-08-13 11:12] LABS: HBSAG SCREEN Negative (Negative)
[2025-08-13] MEDS: NUT.TX.IMP.RENAL FXN,LAC-REDUC (Nepro) 237 ML VANILLA PO SCH (13:29)
--- NOTE | 2025-08-13 13:42 | PROGRESS NOTE ---
Progress Note Dictate Providers to CC ~ Central Line/PICC still needed: Yes Central Line/PICC Necessity: Req HD/Plasmapheresis [facility] Indications Met/Not Met: F/C Indications Not Met Antibiotic Ordered?: N/A Subjective Subjective This is an 79-year-old female with a history of aortic stenosis, hypertension, CHF, ESRD on dialysis(TTS), chronic hypoxemic respiratory failure, on 4-5 L of oxygen at home, had a planned TAVR done by Dr. Grover. She received dialysis on Friday and Friday before the TAVR. Throughout the night and today in the morning she developed increase in the shortness of breadth, was on 15 L high- flow oxygen. Her chest x-ray showed bilateral congestion with bilateral pleural effusion. She received dialysis yesterday, about 3700 mL of fluid was taken out, post dialysis the patient has felt much better, her oxygen requirement decreased to 5 L with nasal cannula. Now she is undergoing dialysis again aiming for 4 liters off as tolerated. She already feels better. Objective Vitals Vital Signs Date Time Temp Pulse Resp B/P (MAP) Pulse Ox O2 Delivery O2 Flow Rate FiO2 08/13/25 12:38 95 High Flow Nasal Cannula 3.0 08/13/25 12:20 97.8 70 20 128/57 (80) 08/12/25 20:00 44 Lab Results: 08/13/25 0931 08/13/25 0931 Objective Vital Signs: As above General: thin body habitus, no acute distress. on 5L NC Skin: No rashes, lumps, ulcers, blisters, purpura or petechiae HEENT: Anicteric sclera, JOSÉ MANUEL Neck: Supple and nontender without enlargement of the thyroid, or lymphadenopathy. Chest: Normal size and shape, no tenderness, CTA bilaterally Heart: Regular. No jugular venous distention, S1 and S2 heard , no gallop Abdomen: Soft and non tender no organomegaly,BS+ Extremities: No pedal edema Neuro: Nonfocal. Coagulation Studies Laboratory Tests Test 08/05/25 14:05 08/11/25 13:29 Prothrombin Time 12.4 SECONDS (9.0-12.0) H INR International Normalized Ratio 1.2 INR Activated Partial Thromboplast Time 29 SECONDS (22-32) Activated Clotting Time 216 SEC (101-148) H Advance Care Planning Advanced Care plannin - 30 Minutes Problem\Assessment\Plan Problems/Diagnosis: (1) End stage renal disease on dialysis Assessment & Plan: HD 2nd day back to back to help with the acute pulmonary edema. doing better. hoping for a possible discharge home tomorrow (2) Aortic stenosis Assessment & Plan: s/p TAVR (3) Acute on chronic diastolic heart failure Assessment & Plan: as above. strict fluid restriction to 1.2 liters per day (4) Pulmonary edema Assessment & Plan: should slowly get better with HD. done back to back for 2 days. Sepsis Screening Skin Color: Normal CEDRIC MCNEAL MD Aug 13, 2025 13:41
[2025-08-14 02:00] VITALS: BP 126/49; PULSE 74; RESP 12; TEMP 98.9; O2SAT 97
[2025-08-14 06:00] VITALS: BP 116/51; PULSE 70; RESP 16; TEMP 98; O2SAT 96; O2SAT 99
--- NOTE | 2025-08-14 07:38 | PROGRESS NOTE ---
Progress Note Dictate Providers to CC ~ Central Line/PICC still needed: Yes Central Line/PICC Necessity: Req HD/Plasmapheresis [facility] Indications Met/Not Met: F/C Indications Not Met Antibiotic Ordered?: N/A Subjective Subjective The patient completed dialysis x 2 days Objective Vitals Vital Signs Date Time Temp Pulse Resp B/P (MAP) Pulse Ox O2 Delivery O2 Flow Rate FiO2 08/14/25 09:54 70 08/14/25 08:00 16 98 High Flow Nasal Cannula 4.0 08/14/25 02:00 98.9 126/49 (74) 08/13/25 22:41 36 Lab Results: 08/13/25 0931 08/13/25 0931 Objective getting ready to be discharged. limited examination feeling a lot better. Coagulation Studies Laboratory Tests Test 08/05/25 14:05 08/11/25 13:29 Prothrombin Time 12.4 SECONDS (9.0-12.0) H INR International Normalized Ratio 1.2 INR Activated Partial Thromboplast Time 29 SECONDS (22-32) Activated Clotting Time 216 SEC (101-148) H Advance Care Planning Advanced Care plannin - 30 Minutes Problem\Assessment\Plan Problems/Diagnosis: (1) End stage renal disease on dialysis Assessment & Plan: HD 2nd day back to back to help with the acute pulmonary edema. doing better. getting discharged now (2) Aortic stenosis Assessment & Plan: s/p TAVR (3) Acute on chronic diastolic heart failure Assessment & Plan: as above. strict fluid restriction to 1.2 liters per day (4) Pulmonary edema Assessment & Plan: should slowly get better with HD. done back to back for 2 days. Sepsis Screening Skin Color: Normal CEDRIC MNCEAL MD Aug 14, 2025 07:38
[2025-08-14 08:00] VITALS: RESP 16; O2SAT 98
[2025-08-14 11:00] VITALS: BP 114/37; PULSE 67; RESP 11; TEMP 96.9; O2SAT 98
--- NOTE | 2025-08-14 12:32 | RADIOLOGY REPORT ---
CHEST RADIOGRAPH Indication: chf follow up Technique: Single frontal view of the chest was obtained COMPARISON: DI CHEST,SINGLE VIEW on DOS: 08/12/25, DI CHEST,SINGLE VIEW on DOS: 08/12/25, DI CHEST,TWO VIEWS on DOS: 07/13/25, CT CT CHEST on DOS: 03/23/25, DI CHEST,SINGLE VIEW on DOS: 03/22/25 FINDINGS: Lines and Tubes: None Lungs: Slightly improving congestive heart failure. Pleura: Small bilateral pleural effusions. No pneumothorax. Cardiomediastinal contours: Cardiomegaly Bones: Unremarkable IMPRESSION: 1. Slightly improving congestive heart failure.
[2025-08-14 15:00] VITALS: BP 117/98; PULSE 67; RESP 15; TEMP 98.1; O2SAT 96
== END 2025-08-14 18:08 | disposition home or self-care (01) | DRG 266 ==
LOC: PAS IN 09:06 → PCU 3S 18:30
PROVIDERS: ADMIT Internal Medicine Cardiovascular Disease; ATTEND Internal Medicine Cardiovascular Disease
PROC: B41F1ZZ Fluoroscopy of Right Lower Extremity Arteries using Low Osmolar Contrast (ICD-10-PCS; 2025-08-11)
PROC: B41G1ZZ Fluoroscopy of Left Lower Extremity Arteries using Low Osmolar Contrast (ICD-10-PCS; 2025-08-11)
PROC: B3101ZZ Fluoroscopy of Thoracic Aorta using Low Osmolar Contrast (ICD-10-PCS; 2025-08-11)
PROC: 02RF38N Replacement of Aortic Valve with Zooplastic Tissue, using Rapid Deployment Technique, Percutaneous Approach (ICD-10-PCS; principal; 2025-08-11 12:47)
PROC: 5A1D70Z Performance of Urinary Filtration, Intermittent, Less than 6 Hours Per Day (ICD-10-PCS; 2025-08-12)
PROC: 5A0945A Assistance with Respiratory Ventilation, 24-96 Consecutive Hours, High Flow/Velocity Cannula (ICD-10-PCS; 2025-08-12)
PROC: 5A1D70Z Performance of Urinary Filtration, Intermittent, Less than 6 Hours Per Day (ICD-10-PCS; 2025-08-13)
DX: I35.0 Nonrheumatic aortic (valve) stenosis (principal); Z00.6 Encounter for examination for normal comparison and control in clinical research program; I50.33 Acute on chronic diastolic (congestive) heart failure; N18.6 End stage renal disease; J96.21 Acute and chronic respiratory failure with hypoxia; I13.2 Hypertensive heart and chronic kidney disease with heart failure and with stage 5 chronic kidney disease, or end stage renal disease; Z99.2 Dependence on renal dialysis; E78.5 Hyperlipidemia, unspecified; Z84.19 Family history of other disorders of kidney and ureter; E21.3 Hyperparathyroidism, unspecified; I25.10 Atherosclerotic heart disease of native coronary artery without angina pectoris
CPT/HCPCS: 33361; 36415; 36600; 71045; 76604; 76937; 80053; 82803; 82948; 83735; 83880; 85018; 85025; 85347; 85610; 85730; 86885; 86900; 86901; 86920; 87081; 87340; 93005; 93308; 94060; 94760; A4615; A4618; A6258; A6449; C1756; C1760; C1769; C1894; E1594; G0257; G0378; J0360; J0604; J0690; J1644; J2250; J2270; J2371; J2704; J2720; J3010; J3373; J3490; J7030; J7040; J7050; J7070; J7120; P9047; Q4081; Q9967

== ENCOUNTER 2025-09-29 15:04 | Inpatient (IN) | payer MEDICARE, MEDICAID ==
[~2025-09-29] VITALS: Ht 157.5 cm; Wt 43.0 kg
[~2025-09-29 15:04] MED LIST changes: +ASPI81TA53 PO; -AURYXIA PO
[2025-09-29 15:28] LABS: MEAN PLATELET VOLUME 7.5 FL (7.4-10.4); RED CELL DISTRIBUTION WIDTH 21.0 % (11.5-14.5)
--- NOTE | 2025-09-29 15:33 | ELECTROCARDIOGRAPH REPORT ---
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 AMADOU Carranza Measurements Intervals [place] Rate: 129 P: 0 MD: 0 QRS: -38 QRSD: 151 T: 144 QT: 344 QTc: 504 Interpretive Statements Atrial fibrillation Left bundle branch block Electronically Signed On 09-30-2025 16:52:[address] AMADOU Carranza Please click the below link to view image of tracing.
--- NOTE | 2025-09-29 15:38 | RADIOLOGY REPORT ---
CHEST RADIOGRAPH Indication: CP Technique: DI CHEST,SINGLE VIEW COMPARISON: None FINDINGS: The cardiac silhouette is enlarged. The lungs demonstrate bilateral patchy airspace opacities. The pulmonary vasculature is prominent. Small bilateral pleural effusions. There is no pneumothorax. Aortic valvular prosthesis. IMPRESSION: Cardiomegaly with pulmonary vascular congestion and bilateral patchy airspace opacities. Small bilateral pleural effusions
[2025-09-29 15:52] LABS: CREATININE 2.30 MG/DL (0.40-0.90); PRO BRAIN NATRIURETIC PEPTIDE 20385 PG/ML (0-450); TOTAL CARBON DIOXIDE 26.4 MMOL/L (24-32); eCRCL 13 ML/MIN; eGFR 20 ML/MIN
[2025-09-29 16:09] LABS: PLATELET ESTIMATE DECREASED
[2025-09-29 16:10] LABS: ELLIPTOCYTES FEW
[2025-09-29] MEDS: metoprolol tartrate 1mg/ml inj IV PRN (16:13)
[2025-09-29] MEDS: magnesium sulf-water 2g/50mL 50 ML IV ONE (16:14)
--- NOTE | 2025-09-29 16:19 | Physician Documentation ---
History of Present Illness General Chief Complaint: See Chief Complaint Stated Complaint: RAPID HR Time Seen by MD: 15:36 Primary Medical Doctor: Dr. Cunha History of Present Illness Initial Comments This is a 79-year-old female who was sent to us from dialysis center for evaluation of elevated heart rate. She has a known history of atrial fibrillation, does not know what she takes for it. She completed her dialysis, however they noticed that her heart rate was elevated and sent her in. She is completely asymptomatic and denies any sensation of palpitation, chest pain, difficulty breathing, nausea, vomiting, diarrhea, abdominal pain. Denies any fever or chills. Denies any concerns for tobacco, alcohol or illicit substances use Medication Reconciliation Allergies: Coded Allergies: iodine (Verified Allergy, Unknown, 09/29/23) Scheduled Alendronate Sodium (Alendronate Sodium), 1 TAB PO Q7D, (Reported) Aspirin (Children's Aspirin), 81 MG PO Q24H@0830 Atorvastatin Calcium (Atorvastatin Calcium), 2 TAB PO DAILY, (Reported) Carvedilol (Carvedilol), 1 TAB PO Q12H, (Reported) Cinacalcet HCl (Sensipar), 2 TAB PO HS, (Reported) Furosemide (Furosemide), 1 TAB PO BID, (Reported) Isosorbide Dinitrate (Isosorbide Dinitrate), 1 TAB PO Q12H, (Reported) Losartan Potassium (Losartan Potassium), 2 TAB PO DAILY, (Reported) Nifedipine (Nifedipine ER), 2 TAB PO HS, (Reported) Scheduled PRN Hydralazine Hcl* (Apresoline*), 1 TAB PO DAILY PRN for high blood pressure, (Reported) Trazodone HCl (Trazodone HCl), 1 TAB PO HS PRN for sleep, (Reported) Past Medical History Past Medical History: Hypertension, Chronic Kidney Disease, Dialysis Review of Systems ROS 10 point review of systems was performed and unless noted above in HPI is negative for acute process/complaint. Physical Exam Physical Exam Vital Signs: Temperature: 97.8, Source: Oral, Heart Rate: 141, Respiratory Rate: 19, BP: 153/92, Pulse Oximetry: 96, Weight: 43.000 Oxygen Flow Rate: 5.0 Physical Exam GENERAL: Awake, alert, oriented, GCS 15, no apparent distress, chronically ill appearing, answers questions, follows commands appropriately. HEENT: Atraumatic, normocephalic, pupils equal, extraocular muscles intact, sclerae anicteric, mucus membranes moist, oropharynx is clear, no stridor. NECK: supple, full active range of motion, trachea midline, no thyromegaly, no lymphadenopathy, no JVD. CARDIOVASCULAR: Tachycardic and irregularly irregular rate/rhythm, no murmurs/gallops/rubs, Pulses are 2+ in all extremities and symmetric. Capillary refill less than 2 seconds. PULMONARY: Nonlabored, good air movement ,no respiratory distress, speaking in full sentences, clear to auscultation bilaterally, no wheezing, no ronchi, no rales, no accessory muscle use. GASTROINTESTINAL: Soft, non-tender, non-distended, normal active bowel sounds, no organomegaly, no pulsatile masses, no CVA tenderness. NEUROLOGIC: Lucid with normal mental status. Normal facial symmetry. Moves all extremities symmetrically and with purpose. No truncal ataxia. Speech is fluid without evidence of dysarthria or aphasia, no focal deficits appreciated. MUSCULOSKELETAL: There is full range of motion of all extremities. There is no joint pain or joint swelling or joint erythema. There is no muscle pain or tenderness or swelling. EXTREMITIES: warm, well-perfused, no cyanosis, no clubbing, no edema, no acute deformities. Skin: warm, dry, no rashes or lesions, no jaundice, no petechiae orpurpura. No ecchymosis. PSYCHIATRIC: Normal affect, normal insight, normal concentration. Focused exam: [Left upper extremity fistula appears to be intact] Progress Results/Orders Results/Orders Orders - ROSSANA BOSS DO Chest,Single View (09/29/25 15:16) Monitor (09/29/25 15:16) Saline Lock (09/29/25 15:16) Oxygen (09/29/25 15:16) Hs Troponin I W Calculations (09/29/25 17:16) Hs Troponin I W Calculations (09/29/25 18:16) Metoprolol Tartrate Inj (Lopressor Iv) (09/29/25 15:45) Magnesium Sulf-Water 2g/50ml (Magnesium (09/29/25 15:45) Completed Orders - ROSSANA BOSS DO Chest,Single View (09/29/25 15:16) Cbc/Diff (09/29/25 15:16) BMP (09/29/25 15:16) PBNP (09/29/25 15:16) Electrocardiogram (09/29/25 15:16) Hs Troponin I W Calculations (09/29/25 15:16) Medications Received in ER Medications (Trade) Dose Ordered Sig/Deana Route PRN Reason Start Time Stop Time Status Last Admin Dose Admin (Lopressor IV) 5 mg Q15M PRN IV HR>100 09/29/25 15:45 09/29/25 16:13 5 MG Vital Signs 09/29/25 09/29/25 15:06 16:13 Temp 97.8 Pulse 118 141 Resp 19 B/P (MAP) 131/92 Pulse Ox 96 O2 Flow Rate 5.0 Laboratory Tests Test 09/29/25 15:20 White Blood Count 5.7 Red Blood Count 2.84 L Hemoglobin 9.4 L Hematocrit 28.3 L Mean Corpuscular Volume 99.6 H Mean Corpuscular Hemoglobin 33.0 H Mean Corpuscular Hemoglobin Concent 33.1 Red Cell Distribution Width 21.0 H Platelet Count 129 L Mean Platelet Volume 7.5 Neutrophils (%) (Auto) 72.2 Lymphocytes (%) (Auto) 17.3 L Monocytes (%) (Auto) 7.2 Eosinophils (%) (Auto) 2.4 Basophils (%) (Auto) 0.9 Neutrophils # (Auto) 4.1 Lymphocytes # (Auto) 1.0 L Monocytes # (Auto) 0.4 Eosinophils # (Auto) 0.1 Basophils # (Auto) 0.0 CBC Comment Platelet Estimate Decreased Red Blood Cell Morphology Perf Basophilic Stippling Anisocytosis 3+ Macrocytosis 1+ Elliptocytes Few Sodium Level 137 Potassium Level 3.7 Chloride Level 102 Carbon Dioxide Level 26.4 Anion Gap 9 Blood Urea Nitrogen 18 Creatinine 2.30 H Estimated GFR/1.73 m2 20 BUN/Creatinine Ratio 7.8 L Glucose Level 90 Calcium Level 9.1 Troponin I High Sensitivity 69 *H Pro-B-Type Natriuretic Peptide 32830 H Albumin 3.2 L Chemistry Comments Medical Decision Making Additional information obtaine: old records, other (EMS) Findings Facility Status: ED Holds, E process The plan was discussed with the patient, who demonstrates clear understanding of the plan and is in agreement with the plan unless otherwise noted in the chart. All questions have been answered, all concerns were addressed unless otherwise documented. I was available throughout their ED stay for frequent reassessment and questions. Differential Diagnoses (considered and possible or likely): [Atrial fibrillation with a rapid ventricular response, ACS, pneumonia, fluid overload, CHF exacerbation, less likely PE, intravascular depletion, electrolyte derangement, less likely SVT, a flutter, less likely ventricular arrhythmia] ??Differential Diagnoses (considered and unlikely, not requiring evaluation currently): [See above] MDM Data Please see [facility] for the following: Independent Historians and external Records Review. Historian: [Patient] Independent Historians: ?[Record review] Medication Management: [Reviewed medication list] Social History and determinants: [Reviewed] Please see the body of the note for the following: Any independent interpretations of ECG, imaging studies. All vitals signs/haemodynamics, ordered tests were independently reviewed and interpreted by myself. Nursing triage complaint and vitals reviewed, additional nursing notes were reviewed as available and I agree unless otherwise noted or documented in contradiction in the chart Vital Signs: Independently reviewed Labs: Independently interpreted Imaging: Independently interpreted Old Medical Records: Independently reviewed, see [facility] for relevant summary and information Pulse Oximetry: [97% on baseline 5 L] interpreted as [baseline] by me [Medical Assistant: [Irregularly irregular with a multiple PVCs. AFib with a RVR.] reviewed and interpreted by me] Additionally notably showing: [Hemodynamics reviewed. The patient is tachycardic, responded well to antiarrhythmics. Laboratory studies notable for anemia of 9.4, likely related to chronic kidney disease, low platelets at 129, no white count. Chemistry consistent with a end-stage renal disease. Troponin is elevated. BNP is markedly elevated concerning for recent fluid overload state. Chest x-ray shows cardiomegaly with pulmonary vascular congestion. Bilateral pleural effusions.] Tests considered but not ordered include: [Advanced imaging has been considerably does not appear to be necessary] Social Determinants of Health Impact: Patient was evaluated in [facility] [place] access to healthcare due to below par ratio of patient to medical providers. [] Comorbid Conditions Impacting Present Evaluation and Care/Treatment: [Dialysis, CHF, COPD] Management Discussions with other Healthcare Providers: [Hospitalist regarding admission] Treatment and Disposition Medication Management (Given or considered): []. See EMR for details Consideration for Hospitalization/Escalation/Deescalation of Care: Admission for observation has been considered, and appears to be necessary for further management of AFib with a RVR ?ED Course:?[No clinical deterioration] ?Shared decision making:?[] Code status:?FULL Please see the full Electronic Medical Record for full details of nursing documentation, medications list, other records of complete past medical history and conditions, vital signs, laboratory studies, and any radiologic study interpretations by radiologists. Portions of this note were completed using [employer] dictation software and as a result there may exist minor errors in spelling. I have reviewed elements of past family and social history and agree as included in note. Differential Diagnosis See body of main note Departure Disposition: ADMITTED INPATIENT Admitted to Inpatient Unit: to hospitalist Impression: Primary Impression: Atrial fibrillation with rapid ventricular response Condition: Improved Referrals: NO PRIMARY CARE PROVIDER (PCP) Critical Care Note Critical Care Note CRITICAL CARE TIME: [35] minutes Treatments/Evaluations: Close monitoring and treatment of unstable vital signs, cardiorespiratory, and neurologic status, while maintaining tight balance of fluid, respiratory, and cardiac interventions. This time includes discussing the case with the patient and the patients family. This time does not include all procedures stated elsewhere in this record. This time also includes reviewing old records, labs and radiological studies. This time includes examining and re- examining the patient. Additionally, this time also includes arranging care with admitting and consulting physicians. Signature Scribe Signature: No scribe Attestation: Date: Sep 29, 2025 Time: 16:19 This note accurately reflects clinical decisions, work performed by myself, DO KARYN Cook NICHOLAS M DO Sep 29, 2025 16:19
[2025-09-29] MEDS ORDERED: potassium Cl 40MEQ/1/2NS 520ml 520 ML IV PRN (16:50)
[2025-09-29] MEDS ORDERED: magnesium Cl slow-release 64mg tablet PO PRN (16:50)
[2025-09-29] MEDS ORDERED: potassium Cl 20 mEq SR tablet PO PRN ×2 (16:50)
[2025-09-29] MEDS ORDERED: magnesium sulf-water 2g/50mL 50 ML IV PRN (16:50)
[2025-09-29] MEDS ORDERED: magnesium sulf-water 4G/100mL 100 ML IV PRN (16:50)
--- NOTE | 2025-09-29 16:54 | HISTORY AND PHYSICAL ---
History & Physical Providers to CC ~ History of Present Illness Reason for Admit\Complaint: Rapid heart History of Present Illness Patient is an 79 years old female with a history of hypertension, diastolic CHF, end-stage renal disease, AFib, aortic stenosis with a history of TAVR who was sent over from dialysis clinic because of rapid heart rate. Patient has a history of AFib and follows with a television repair teacher in [place]. She denies having any palpitations orthopnea PND or ankle edema. She denies having any abdominal pain dysuria frequency urgency hematuria melena or bright red blood per rectum. Patient denies having any focal neurological symptoms. Patient states she is on 5 L of oxygen at home at baseline. Patient is being admitted for AFib with RVR. Allergies: Coded Allergies: iodine (Verified Allergy, Unknown, 09/29/23) Home Medications Home Medications Active Children's Aspirin (Aspirin) 81 Mg Tab.chew 81 Mg PO Q24H@0830 30 Days Reported Carvedilol 12.5 Mg Tablet 1 Tab PO Q12H Trazodone HCl 50 Mg Tablet 1 Tab PO HS PRN Isosorbide Dinitrate 5 Mg Tablet 1 Tab PO Q12H 30 Days Atorvastatin Calcium 40 Mg Tablet 2 Tab PO DAILY Furosemide 80 Mg Tablet 1 Tab PO BID Nifedipine ER (Nifedipine) 90 Mg Tablet.er 2 Tab PO HS Losartan Potassium 100 Mg Tablet 2 Tab PO DAILY Sensipar (Cinacalcet) 60 Mg Tablet 2 Tab PO HS Alendronate Sodium 70 Mg Tablet 1 Tab PO Q7D Apresoline* (Hydralazine HCl) 25 Mg Tablet 1 Tab PO DAILY PRN ONLY IF NEEDED Past Medical History Past Medical History , HTN , Chronic respiratory failure,HTN A Fib , ESRD Past Surgical History Surgical History Comment LUE AVF TAVR Family History Family History: Family history was reviewed; no changes noted. Past Social History Social History Comment Does not smoke, drink or do any drugs Health Maintenance Health Maintenance Current on her immunizations ROS ROS All other systems are reviewed and are negative except as mentioned in HPI Exam Vitals: Vital Signs Date Time Temp Pulse Resp B/P (MAP) Pulse Ox O2 Delivery O2 Flow Rate FiO2 09/29/25 16:13 141 09/29/25 15:06 97.8 19 131/92 96 5.0 General: Awake alert oriented HEENT: NC, AT , EOMI Neck: Supple, no JVD Chest: Clear to auscultation , no wheezes crackles or rhonchi Cardiovascular: Irregular rhythm, tachycardia Abdomen: Soft , non tender, no organomegaly Extremities: No C/C/E Central Nervous System: Nonfocal. Moves all four extremities Musculoskeletal: No joint swelling or deformities. Skin: Poor skin turgor Diagnostic Data Last Recorded Lab Results: 09/29/25 1520 09/29/25 1520 Additional Plan 79 years old female sent over from dialysis clinic because of rapid heart rate. Patient states she went to her doctor's office yesterday and was told she has AFib # AFib with RVR: Treated with IV metoprolol in the ER. Continue monitor on tele. Last echocardiogram 08/12/2025 showed EF of 65-70%. Patient is on nifedipine which will be discontinued and we will start her on p.o. Cardizem. Request Cardiology consultation in a.m. #chronic respiratory failure: Patient states she is on 5 L of oxygen at home. Continue supplemental oxygen # COPD without exacerbation: Inhaled bronchodilators PRN. # history of TAVR as noted on the echocardiogram. Patient had a echocardiogram on 08/12/2025 which showed trace paravalvular leak at five, six, seven and 12:00 p.m. in TTE SAX BASE # hyperlipidemia: Continue atorvastatin #hypertension: Continue losartan # anemia: Likely of chronic disease. Continue monitor H&H # end-stage renal disease: On hemodialysis. Request Nephrology consultation in a.m.. #code status: Patient wishes to be a DNR Date of Service: Sep 29, 2025 Billing Provider: KALEIGH HEWITT MD Common Visit Codes: [id number] INP/OBS CARE (HIGH) KALEIGH HEWITT MD Sep 29, 2025 16:54
[2025-09-29] MEDS: K and/or MAG REPLACEMENT MC SCH (20:00)
[2025-09-29] MEDS: diltiazem 30mg tablet PO SCH (21:05)
[2025-09-29 23:41] VITALS: BP 148/97; PULSE 113; RESP 22; TEMP 97.8; O2SAT 98
[2025-09-30] VITALS (9 sets, daily range): BP systolic 139–173; BP diastolic 73–99; PULSE 82–114; RESP 16–27; TEMP 97–97.7; O2SAT 96–100
[2025-09-30 06:49] LABS: MEAN PLATELET VOLUME 7.8 FL (7.4-10.4); RED CELL DISTRIBUTION WIDTH 20.5 % (11.5-14.5)
[2025-09-30 07:06] LABS: CREATININE 3.65 MG/DL (0.40-0.90); TOTAL CARBON DIOXIDE 23.5 MMOL/L (24-32); eCRCL 8 ML/MIN; eGFR 12 ML/MIN
--- NOTE | 2025-09-30 11:22 | PROGRESS NOTE ---
Daily Progress Note Providers to CC ~ Antibiotic Timeout Antibiotic Ordered?: No Subjective Patient has no new complaints, requesting a breathing treatment . Objective Vital Signs Date Time Temp Pulse Resp B/P (MAP) Pulse Ox O2 Delivery O2 Flow Rate FiO2 09/30/25 10:54 97 22 100 Nasal Cannula* 4 36 09/30/25 06:00 97.4 155/83 (107) Result Diagram: 09/30/25 0557 09/30/25 0557 Elderly frail sick-looking female HEENT normocephalic atraumatic extraocular movements are intact Neck supple, no JVD Chest: Decreased breath sounds with crackles at bases Heart: Regular rhythm, tachycardia Abdomen is soft nontender no organomegaly Extremities no cyanosis clubbing or edema Neuro exam is nonfocal. Other Results Medications reviewed Problem\Assessment\Plan 79 years old female sent over from dialysis clinic because of rapid heart rate. Patient states she went to her doctor's office yesterday and was told she has AFib # AFib with RVR: Treated with IV metoprolol in the ER. Continue monitor on tele. Last echocardiogram 08/12/2025 showed EF of 65-70%. Patient is on nifedipine which will be discontinued and we will start her on p.o. Cardizem. Discussed with Dr. Koo. Will repeat echocardiogram #chronic respiratory failure: Patient states she is on 5 L of oxygen at home. Continue supplemental oxygen # COPD without exacerbation: Inhaled bronchodilators PRN. # history of TAVR as noted on the echocardiogram. Patient had a echocardiogram on 08/12/2025 which showed trace paravalvular leak at five, six, seven and 12:00 p.m. in TTE [place] B[place] # hyperlipidemia: Continue atorvastatin #hypertension: Continue losartan # anemia: Likely of chronic disease. Continue monitor H&H # end-stage renal disease: On hemodialysis. Nephrology has been consulted. # Hyperkalemia Treat per nephrology. #code status: DNR per patient request Date of Service: Sep 30, 2025 Billing Provider: KALEIGH HEWITT MD Common Visit Codes: [id number] INP/OBS CARE(HIGH) KALEIGH HEWITT MD Sep 30, 2025 11:22
[2025-09-30] MEDS: Alendronate Sodium 70MG PO SCH (11:30)
[2025-09-30] MEDS: ipratropium/albuterol 3ml nebule NEB PRN (11:38)
[2025-09-30] MEDS: Nepro carb steady vanilla 8oz. PO SCH (14:15)
[2025-09-30] MEDS: ondansetron/PF 4mg/2ml inj IV PRN (14:28)
--- NOTE | 2025-09-30 18:23 | CONSULTATION REPORT ---
Cardiac Consultation Report Providers to CC ~ Subjective Subjective Cardiology consultation: I was asked by Dr. Bey to see this patient in was sent here from dialysis where she had rapid atrial fibrillation and severe shortness of breath. She arrived on oxygen 5 L/min. It turns out that she is chronically on oxygen at home and this recurrent event is not new. Last time it occurred because she had missed some dialysis. On 08/11/2025 she received a TAVR. Coronaries were normal prior. Fraction was apparently normal. At that time she went home on alendronate atorvastatin carvedilol Sensipar furosemide hydralazine isosorbide losartan nifedipine trazodone. Cardiology cares apparently [facility] she comes here for dialysis. Laboratory shows she is anemic with high creatinine high potassium chest x-ray with heart failure. His consultation pending with Nephrology. Dialysis is to be completed. Objective Vitals Vital Signs Date Time Temp Pulse Resp B/P (MAP) Pulse Ox O2 Delivery O2 Flow Rate FiO2 09/30/25 15:00 97.1 114 20 156/92 (113) 99 Room Air 3.0 32 Lab Results: 09/30/25 0557 09/30/25 0557 Objective Carotid no bruit chest rales present he has breath sounds at bases. She is out of breath on oxygen. No murmur no S3 gallop. Problem\Assessment\Plan Additional Plan Impression: Shortness of the breath from chronic lung disease with oxygen dependency with associated volume overload for which she is receiving dialysis rapid atrial fibrillation which now has improved with hospitalization and rest. Recommendation: Continued supportive care. Perform echocardiogram to ensure that heart function has not changed. Underweight chronically ill-appearing and I agree with DNR status. SARAN TAMAYO MD Sep 30, 2025 18:22
[2025-09-30] MEDS: isosorbide dinitrate 5mg tablet PO SCH (21:20)
--- NOTE | 2025-09-30 22:59 | CONSULTATION REPORT ---
Consult Providers to CC ~ History of Present Illness Reason for Admit\Complaint: Rapid heart rate History of Present Illness 79-year-old woman with a history of hypertension, diastolic heart failure, end- stage renal disease (ESRD) on hemodialysis (//Fri), atrial fibrillation, aortic stenosis s/p TAVR, chronic respiratory failure (on 5L O2 at home), COPD, anemia of CKD, secondary hyperparathyroidism, and hyperphosphatemia. She was sent from dialysis clinic for rapid heart rate and palpitations (now resolved). She denies current palpitations, abdominal pain, dysuria, or frequency. She is at her oxygen baseline. Home meds include aspirin, carvedilol, trazodone, isosorbide dinitrate, atorvastatin, furosemide, nifedipine, losartan, Sensipar, alendronate, and PRN hydralazine. She has a left upper extremity AVF. Labs notable for Hgb 8.5, Hct 25.5, MCV 99.7, K 5.7, BUN 35, Cr 3.65, Mg 2.9, albumin 3.0, Ca 9.0, troponins 6672 (stable, mildly elevated). Vitals: T 97.1, HR 106, RR 22, SpO2 97% on 3L. CXR: cardiomegaly, pulmonary vascular congestion, bilateral patchy opacities, bilateral pleural effusions. Allergies: Coded Allergies: iodine (Verified Allergy, Unknown, 09/29/23) Home Medications Home Medications Active Children's Aspirin (Aspirin) 81 Mg Tab.chew 81 Mg PO Q24H@0830 30 Days Reported Carvedilol 12.5 Mg Tablet 1 Tab PO Q12H Trazodone HCl 50 Mg Tablet 1 Tab PO HS PRN Isosorbide Dinitrate 5 Mg Tablet 1 Tab PO Q12H 30 Days Atorvastatin Calcium 40 Mg Tablet 2 Tab PO DAILY Furosemide 80 Mg Tablet 1 Tab PO BID Nifedipine ER (Nifedipine) 90 Mg Tablet.er 2 Tab PO HS Losartan Potassium 100 Mg Tablet 2 Tab PO DAILY Sensipar (Cinacalcet) 60 Mg Tablet 2 Tab PO HS Alendronate Sodium 70 Mg Tablet 1 Tab PO Q7D Apresoline* (Hydralazine HCl) 25 Mg Tablet 1 Tab PO DAILY PRN ONLY IF NEEDED Past Medical History Past Medical History Reviewed Past Surgical History Surgical History Comment Reviewed Family History Family History: FH: kidney failure MOTHER Past Social History Social History Comment Reviewed Health Maintenance Health Maintenance Reviewed ROS ROS All other systems negative by patient's history Exam Vitals: Vital Signs Date Time Temp Pulse Resp B/P (MAP) Pulse Ox O2 Delivery O2 Flow Rate FiO2 09/30/25 20:00 Room Air 3.0 32 09/30/25 18:30 114 09/30/25 15:00 97.1 20 156/92 (113) 99 Alert, appears comfortable Regular rate and rhythm without murmur Clear to auscultation bilaterally Positive bowel sounds, nontender No edema Diagnostic Data Last Recorded Lab Results: 09/30/25 0557 09/30/25 0557 Problems: (1) Secondary hyperparathyroidism (of renal origin) Assessment & Plan: Secondary Hyperparathyroidism and Hyperphosphatemia Continue Sensipar (cinacalcet). Dietary phosphate restriction. Phosphate binders as indicated. Monitor calcium, phosphate, PTH levels. (2) Anemia due to pre-ESRD treated with erythropoietin Assessment & Plan: Anemia of CKD Hgb 8.5, Hct 25.5, MCV 99.7 (normocytic, normochromic). Evaluate for iron deficiency (ferritin, TSAT), B12, folate. Consider CRESCENCIO therapy if iron replete and no contraindications. Transfuse PRN for symptomatic anemia or Hgb <78. (3) Respiratory failure Assessment & Plan: Chronic Respiratory Failure/COPD Continue home O2 at baseline (5L). Monitor for signs of infection or decompensation. Pulmonary hygiene and bronchodilators as indicated. Avoid fluid overload to reduce pulmonary congestion. (4) Hypervolemia Assessment & Plan: Volume Overload/Pulmonary Congestion CXR: cardiomegaly, vascular congestion, bilateral effusions. Optimize ultrafiltration during dialysis. Monitor for respiratory distress; adjust O2 as needed. Consider diuretics if residual renal function. (5) Heart failure Assessment & Plan: Diastolic Heart Failure (HFpEF) Monitor volume status; avoid fluid overload. Continue antihypertensives (carvedilol, losartan, nifedipine, hydralazine PRN). Diuretics (furosemide) as tolerated, though limited benefit in ESRD. Monitor for signs of decompensation (dyspnea, edema, weight gain). (6) End stage renal disease on dialysis Status: Acute Assessment & Plan: End-Stage Renal Disease (ESRD) on Hemodialysis Continue scheduled hemodialysis (//Fri). Monitor for volume overload and adjust ultrafiltration as needed. Maintain AVF patency; monitor for signs of infection or dysfunction. Review and adjust medications for renal dosing. Monitor electrolytes closely, especially potassium and calcium. (7) Atrial fibrillation with rapid ventricular response Status: Acute Assessment & Plan: Atrial Fibrillation with Recent Tachycardia Continue rate control with carvedilol; monitor for bradycardia/hypotension. No current palpitations; rhythm appears stable. Continue anticoagulation as indicated (currently on aspirin; consider risk/benefit of full anticoagulation given age, comorbidities, and bleeding risk). Cardiology follow-up for ongoing management. (8) Hypertensive urgency Status: Acute Assessment & Plan: Hypertension Continue current antihypertensive regimen. Monitor BP pre- and post-dialysis. Adjust medications as needed for target BP (<140/90). DAYO LOPEZ III DO Sep 30, 2025 22:58
[2025-10-01] VITALS (15 sets, daily range): BP systolic 94–148; BP diastolic 49–88; PULSE 67–104; RESP 14–22; TEMP 97–98.6; O2SAT 93–100
[2025-10-01 05:57] LABS: MEAN PLATELET VOLUME 8.1 FL (7.4-10.4); RED CELL DISTRIBUTION WIDTH 21.0 % (11.5-14.5)
[2025-10-01 06:22] LABS: PLATELET ESTIMATE DECREASED
[2025-10-01 06:24] LABS: CREATININE 5.07 MG/DL (0.40-0.90); TOTAL CARBON DIOXIDE 21.9 MMOL/L (24-32); eCRCL 6 ML/MIN; eGFR 8 ML/MIN
[2025-10-01] MEDS: dextrose 50%-water 50ml dispensing syringe IV ONE (07:41)
[2025-10-01] MEDS: calcium chloride 100 MG/1 ML inj IV ONE (07:41)
[2025-10-01] MEDS: insulin regular, human 10 units/0.1 ml syringe IV ONE (07:51)
[2025-10-01] MEDS: SODIUM ZIRCONIUM CYCLOSILICATE 10 GM POWD.PACK PO ONE (07:52)
[2025-10-01] MEDS ORDERED: normal saline 1000ml 100 ML IV PRN (08:00)
[2025-10-01] MEDS: EPOETIN ALFA-EPBX 20,000 UNIT/ML 1 ML MDV IV ONE (12:09)
--- NOTE | 2025-10-01 13:20 | PROGRESS NOTE ---
Daily Progress Note Providers to CC ~ Antibiotic Timeout Antibiotic Ordered?: No Subjective No new complaints. Asking why her potassium is high. Objective Vital Signs Date Time Temp Pulse Resp B/P (MAP) Pulse Ox O2 Delivery O2 Flow Rate FiO2 10/01/25 12:50 95 18 95/63 (74) 99 Nasal Cannula 3.0 10/01/25 10:50 97.9 10/01/25 08:08 36 Result Diagram: 10/01/2552110/01/25 05 Elderly frail sick-looking female HEENT normocephalic atraumatic extraocular movements are intact Neck supple, no JVD Chest: Decreased breath sounds with crackles at bases Heart: Regular rhythm, tachycardia Abdomen is soft nontender no organomegaly Extremities no cyanosis clubbing or edema Neuro exam is nonfocal. Other Results Medications reviewed Problem\Assessment\Plan 79 years old female sent over from dialysis clinic because of rapid heart rate. Patient states she went to her doctor's office yesterday and was told she has AFib # AFib with RVR: Treated with IV metoprolol in the ER. Continue monitor on tele. Last echocardiogram 08/12/2025 showed EF of 65-70%. Patient is on nifedipine which will be discontinued and we will start her on p.o. Cardizem. Discussed with Dr. Koo and he recommended contacting Dr. Grover. We will check echocardiogram. # hypokalemia: Patient has been treated with Lokelma, insulin and calcium. Continue monitor. Treat per Nephrology recommendations. #chronic respiratory failure: Patient states she is on 5 L of oxygen at home. Continue supplemental oxygen # COPD without exacerbation: Inhaled bronchodilators PRN. # history of TAVR as noted on the echocardiogram. Patient had a echocardiogram on 08/12/2025 which showed trace paravalvular leak at five, six, seven and 12:00 p.m. in [facility] # hyperlipidemia: Continue atorvastatin #hypertension: Continue losartan # anemia: Likely of chronic disease. Continue monitor H&H # end-stage renal disease: On hemodialysis. Nephrology has been consulted. # Hyperkalemia Treat per nephrology. #code status: DNR per patient request Sepsis Screening Skin Color: Normal Date of Service: Oct 01, 2025 Billing Provider: KALEIGH HEWITT MD Common Visit Codes: [id number] INP/OBS CARE(HIGH) KALEIGH HEWITT MD Oct 01, 2025 13:19
[2025-10-01] MEDS: HYDROcodone/acetaminophen 5mg/325mg tablet PO PRN (13:42)
--- NOTE | 2025-10-01 15:00 | PROGRESS NOTE ---
Progress Note Cardiology Providers to CC ~ Subjective Subjective Cardiology progress note: Status post TAVR hemodialysis recurrent congestive heart failure recurrent episodes of rapid atrial fibrillation. Chronic oxygen- dependent lung disease. Discrepant under nourished now DNR status. Rapid atrial fibrillation has resolved. She is receiving dialysis at time and wants to go home as soon as it is done. Objective Result Diagram: 10/01/2552110/01/25521 Objective Laboratories are much worse than yesterday I explained that to her as she wanted to leave immediately. I told her that it may not be advisable. Potassium was 6.6 predialysis creatinine of two five now. Clinical examination of the lungs with rales wheeze. Problem\Assessment\Plan Additional Plan Assessment: Chronic cor pulmonale oxygen dependency chronic hemodialysis. Superimposed congestive heart failure status post TAVR. Volume overload being dialyzed. Recommendation: Continued supportive care. SARAN TAMAYO MD Oct 01, 2025 15:00
--- NOTE | 2025-10-01 17:27 | PROGRESS NOTE ---
Progress Note Dictate Providers to CC ~ Progress Note: 79-year-old woman with a history of hypertension, diastolic heart failure, end- stage renal disease (ESRD) on hemodialysis (//Fri), atrial fibrillation, aortic stenosis s/p TAVR, chronic respiratory failure (on 5L O2 at home), COPD, anemia of CKD, secondary hyperparathyroidism, and hyperphosphatemia. She was sent from dialysis clinic for rapid heart rate and palpitations (now resolved). She denies current palpitations, abdominal pain, dysuria, or frequency. She is at her oxygen baseline. Home meds include aspirin, carvedilol, trazodone, isosorbide dinitrate, atorvastatin, furosemide, nifedipine, losartan, Sensipar, alendronate, and PRN hydralazine. She has a left upper extremity AVF. Labs notable for Hgb 8.5, Hct 25.5, MCV 99.7, K 5.7, BUN 35, Cr 3.65, Mg 2.9, albumin 3.0, Ca 9.0, troponins 6672 (stable, mildly elevated). Vitals: T 97.1, HR 106, RR 22, SpO2 97% on 3L. CXR: cardiomegaly, pulmonary vascular congestion, bilateral patchy opacities, bilateral pleural effusions. Antibiotic Ordered?: N/A Subjective Subjective On dialysis at the time of evaluation, tolerating it well Objective Vitals Vital Signs Date Time Temp Pulse Resp B/P (MAP) Pulse Ox O2 Delivery O2 Flow Rate FiO2 10/01/25 15:00 98.2 92 16 103/56 (72) 94 Nasal Cannula 3.0 10/01/25 08:08 36 Alert, appears comfortable RRR w/o murmur CTAB +BS, NT No edema Lab Results: 10/01/25 0522 10/01/25 1616 Other Results I & O 10/01/25 07:00 Intake Total 440 ml Balance 440 ml Intake Oral 440 ml # Voids 1 # Bowel Movements 2 Problem\Assessment\Plan Problems/Diagnosis: (1) Secondary hyperparathyroidism (of renal origin) Assessment & Plan: Secondary Hyperparathyroidism and Hyperphosphatemia Continue Sensipar (cinacalcet). Dietary phosphate restriction. Phosphate binders as indicated. Monitor calcium, phosphate, PTH levels. (2) Anemia due to pre-ESRD treated with erythropoietin Assessment & Plan: Anemia of CKD Hgb 8.5, Hct 25.5, MCV 99.7 (normocytic, normochromic). Evaluate for iron deficiency (ferritin, TSAT), B12, folate. Continue CRESCENCIO therapy if iron replete and no contraindications. Transfuse PRN for symptomatic anemia or Hgb <78. (3) Respiratory failure Assessment & Plan: Chronic Respiratory Failure/COPD Improved Continue home O2 at baseline (5L). Monitor for signs of infection or decompensation. Pulmonary hygiene and bronchodilators as indicated. Avoid fluid overload to reduce pulmonary congestion. (4) Hypervolemia Assessment & Plan: Volume Overload/Pulmonary Congestion CXR: cardiomegaly, vascular congestion, bilateral effusions. Optimize ultrafiltration during dialysis. Monitor for respiratory distress; adjust O2 as needed. Consider diuretics if residual renal function. (5) Heart failure Assessment & Plan: Diastolic Heart Failure (HFpEF) Monitor volume status; avoid fluid overload. Continue antihypertensives (carvedilol, losartan, nifedipine, hydralazine PRN). Diuretics (furosemide) as tolerated, though limited benefit in ESRD with minimal UOP. Monitor for signs of decompensation (dyspnea, edema, weight gain). (6) End stage renal disease on dialysis Assessment & Plan: End-Stage Renal Disease (ESRD) on Hemodialysis Continue scheduled hemodialysis (//Fri). Monitor for volume overload and adjust ultrafiltration as needed. Maintain AVF patency; monitor for signs of infection or dysfunction. Review and adjust medications for renal dosing. Monitor electrolytes closely, especially potassium and calcium. (7) Atrial fibrillation with rapid ventricular response Assessment & Plan: Atrial Fibrillation with Recent Tachycardia Continue rate control with carvedilol; monitor for bradycardia/hypotension. No current palpitations; rhythm appears stable. Continue anticoagulation as indicated (currently on aspirin; consider risk/benefit of full anticoagulation given age, comorbidities, and bleeding risk). Cardiology follow-up for ongoing management. (8) Hypertensive urgency Assessment & Plan: Hypertension improved Continue current antihypertensive regimen. Monitor BP pre- and post-dialysis. Adjust medications as needed for goal BP (<140/90). Sepsis Screening Skin Color: Normal WALL,DAYO M III DO Oct 01, 2025 17:27
[2025-10-02 02:00] VITALS: BP 155/86; PULSE 82; RESP 15; TEMP 98.7; O2SAT 99
[2025-10-02 06:05] LABS: MEAN PLATELET VOLUME 7.8 FL (7.4-10.4); RED CELL DISTRIBUTION WIDTH 20.5 % (11.5-14.5)
[2025-10-02 06:50] LABS: CREATININE 3.45 MG/DL (0.40-0.90); TOTAL CARBON DIOXIDE 27.7 MMOL/L (24-32); eCRCL 9 ML/MIN; eGFR 13 ML/MIN
[2025-10-02 07:00] VITALS: BP 144/71; PULSE 70; RESP 13; TEMP 97.3; O2SAT 97
[2025-10-02 08:00] VITALS: RESP 13; O2SAT 97
[2025-10-02 08:24] LABS: ELLIPTOCYTES 1+; PLATELET ESTIMATE DECREASED
[2025-10-02 09:45] VITALS: PULSE 78; RESP 18; O2SAT 99
[2025-10-02 11:00] VITALS: BP 90/49; PULSE 78; RESP 21; TEMP 97.8; O2SAT 95
--- NOTE | 2025-10-02 11:44 | PROGRESS NOTE ---
Progress Note Cardiology Providers to CC ~ Subjective Subjective Cardiology progress note: Rapid atrial fibrillation congestive heart failure from volume overload with normal left ventricular contractility. Status post TAVR normal coronaries. Atrial fibrillation rate is controlled. Chronically on oxygen at home. Objective Result Diagram: 10/02/2552810/02/25528 Objective She appears anxious and under nourished. Heart murmur heard. Lungs now are clear. Atrial fibrillation rate controlled. Problem\Assessment\Plan Additional Plan Assessment improved with dialysis. Recommendation: Check arterial blood gas on room air for baseline. Follow-up with her usual transmission engineer. We will sign off. SARAN TAMAYO MD Oct 02, 2025 11:44
[2025-10-02 15:00] VITALS: BP 116/69; PULSE 89; RESP 20; TEMP 98.7; O2SAT 98
[2025-10-02] MEDS ORDERED: DILT120C88 PO (17:29)
--- NOTE | 2025-10-02 20:15 | DISCHARGE SUMMARY ---
Discharge Summary Providers to CC ~ Discharge Summary Admission Diagnosis: AFIB WITH RVR Hospital Course DATE OF ADMISSION: 09/29/2025 DATE OF DISCHARGE: 10/02/2025 Discharge Diagnosis\\Comment: AFib RVR, hyperkalemia, chronic respiratory failure with chronic COPD, hyperlipidemia, hypertension, end-stage renal disease on dialysis, type 2 mi Operations\\Procedures: Hemodialysis Consultants: Dr. Chandler Guerrero violin maker hand Dr. Dante Koo billing auditor Complications: None Condition on DC: Stable New Medications: Diltiazem Hcl (Cardizem Cd) 120 Mg Cap.sr.24h 1 CAP PO DAILY for 30 Days, #30 CAP 0 Refills Continued Medications: Alendronate Sodium (Alendronate Sodium) 70 Mg Tablet 1 TAB PO Q7D Aspirin (Children's Aspirin) 81 Mg Tab.chew 81 MG PO Q24H@0830 for 30 Days, #30 TAB.CHEW Atorvastatin Calcium (Atorvastatin Calcium) 40 Mg Tablet 2 TAB PO DAILY Carvedilol (Carvedilol) 12.5 Mg Tablet 1 TAB PO Q12H Cinacalcet HCl (Sensipar) 60 Mg Tablet 2 TAB PO HS, TAB Furosemide (Furosemide) 80 Mg Tablet 1 TAB PO BID Hydralazine Hcl* (Apresoline*) 25 Mg Tablet 1 TAB PO DAILY PRN for high blood pressure ONLY IF NEEDED Isosorbide Dinitrate (Isosorbide Dinitrate) 5 Mg Tablet 1 TAB PO Q12H for 30 Days, #60 TAB 0 Refills Losartan Potassium (Losartan Potassium) 100 Mg Tablet 2 TAB PO DAILY Trazodone HCl (Trazodone HCl) 50 Mg Tablet 1 TAB PO HS PRN for sleep Discontinued Medications: Nifedipine (Nifedipine ER) 90 Mg Tablet.er 2 TAB PO HS Discharge Summary: The patient is admitted by Dr. Ed Mims with the following HPI:"Patient is an 79 years old female with a history of hypertension, diastolic CHF, end-stage renal disease, AFib, aortic stenosis with a history of TAVR who was sent over from dialysis clinic because of rapid heart rate. Patient has a history of AFib and follows with a billing auditor in [place]. She denies having any palpitations orthopnea PND or ankle edema. She denies having any abdominal pain dysuria frequency urgency hematuria melena or bright red blood per rectum. Patient denies having any focal neurological symptoms. Patient states she is on 5 L of oxygen at home at baseline. Patient is being admitted for AFib with RVR." The patient is started on a Cardizem drip and transitioned to p.o. Cardizem- the patient also remains on carvedilol 12.5 mg b.i.d. The patient is evaluated by Dr. Dante Koo billing auditor who commented that the patient hyperkalemia was improved with dialysis and documented that the patient's rapid atrial fibrillation was rate controlled. The patient has chronic anemia likely secondary to end-stage renal disease hemoglobin on 07/13/2025 was 11.0 at the time of admission was 9.2 and on day discharge was 8.2 that is due to end-stage renal disease and chronic anemia requiring erythropoietin as well as the patient has advanced age of 79 and low BMI I of 17.3 Eliquis is relatively contraindicated and the risks far outweigh the benefits The patient has a serum potassium of 6.6 on October 01 repeat afternoon lab demonstrated a serum potassium of 3.9 and on day discharge was 4.1. The patient had received dialysis on the . The patient has a mildly elevated high sensitivity troponin on admission of 69 and peaked at 72 and then downtrended to 66. The patient has chronic respiratory failure secondary to COPD her oxygen saturation was in the high 90s on 3 L the patient per documentation uses 5 L oxygen at home this is likely too high of oxygen however on ABG on 08/05/2025 the patient is pCO2 was 35 well within normal limits. The patient ambulated with physical therapy and did well and was cleared to be discharged home. Gen. No acute distress alert and oriented 4 Lungs clear to ascultation bilaterally, no wheezes rales or rhonchi appreciated Heart irregular rhythm no murmurs rubs or clicks noted Abdomen soft nontender bowel sounds are normoactive Lower extremities no clubbing cyanosis, nor edema appreciated bilaterally The patient felt ready to be discharged and was medically cleared to be discharged on 10/02/2025 The patient was seen and evaluated on day of discharge. Time spent on discharge 40 minutes *Problems/Diagnosis: (1) Anemia due to pre-ESRD treated with erythropoietin (2) End stage renal disease on dialysis Status: Acute (3) Atrial fibrillation with rapid ventricular response Status: Acute Total Time Spent on D/C: > 30 Minutes Date of Service: Oct 02, 2025 Billing Provider: KIMBERLY PATTERSON DO Common Visit Codes: 80770-[id number] DISCH DAY >30min KIMBERLY PATTERSON DO Oct 02, 2025 20:15
[2025-10-04 11:18] LABS: HBSAG SCREEN Negative (Negative)
== END 2025-10-02 18:06 | disposition home or self-care (01) | DRG 280 ==
LOC: ER 15:05 → ED HOLD 16:53 → PCU 3S 16:53 → UNDOADMOB 16:53 → ED HOLD 23:36 → PCU 3S 23:36
PROVIDERS: ADMIT Internal Medicine; ATTEND Internal Medicine
PROC: 5A1D70Z Performance of Urinary Filtration, Intermittent, Less than 6 Hours Per Day (ICD-10-PCS; principal; 2025-10-01)
DX: I48.91 Unspecified atrial fibrillation (principal); N18.6 End stage renal disease; I21.A1 Myocardial infarction type 2; I13.2 Hypertensive heart and chronic kidney disease with heart failure and with stage 5 chronic kidney disease, or end stage renal disease; Z66 Do not resuscitate; D63.1 Anemia in chronic kidney disease; I16.0 Hypertensive urgency; E83.39 Other disorders of phosphorus metabolism; I27.81 Cor pulmonale (chronic); J96.10 Chronic respiratory failure, unspecified whether with hypoxia or hypercapnia; Z99.2 Dependence on renal dialysis; J44.9 Chronic obstructive pulmonary disease, unspecified; Z95.2 Presence of prosthetic heart valve; I50.32 Chronic diastolic (congestive) heart failure; N25.81 Secondary hyperparathyroidism of renal origin; E78.5 Hyperlipidemia, unspecified; E87.5 Hyperkalemia; Z79.899 Other long term (current) drug therapy; Z99.81 Dependence on supplemental oxygen
CPT/HCPCS: 36415; 71045; 80048; 82948; 83735; 83880; 84132; 84484; 85008; 85025; 87081; 87340; 93005; 94640; 94760; 99291; A6258; A6449; E1594; G0257; G0378; J1815; J2405; J3490; J7030; Q4081